=== PATIENT | male | born 1980 | race Caucasian/White ===

== ENCOUNTER 2020-10-18 18:07 | Emergency (ER) | payer OTHER, SELFPAY ==
[2020-10-18 18:13] VITALS: BP 108/76; PULSE 100; RESP 20; TEMP 35.9; O2SAT 98
--- NOTE | 2020-10-18 18:13 | ED.SKABFB ---
HPI - Skin/Abscess/Foreign Bdy General Chief complaint: Wound/Laceration Stated complaint: left hand finger lac Time Seen by Provider: 10/18/20 18:14 Source: patient and RN notes reviewed History of Present Illness HPI narrative: Patient is a 40-year-old male who presents the urgent care with complaints of a laceration to the left middle finger. Patient states that it occurred approximately 2 to 3 hours ago when he was drywalling his basement. Patient states that he placed a Band-Aid on it but denies of cleaning it out. States that he is up-to-date on his tetanus. No other acute complaints or injuries. No acute distress noted. Patient aware of the plan of care. Some parts of this dictation were generated by voice recognition software and may contain typographical and/or grammatical inaccuracies. Related Data Home Medications Medication Instructions Recorded Confirmed lisinopril 20 mg PO DAILY 10/18/20 10/18/20 topiramate 50 mg PO DAILY 10/18/20 10/18/20 Allergies Allergy/AdvReac Type Severity Reaction Status Date / Time Sulfa (Sulfonamide Allergy Unknown Rash Unverified 10/18/20 18:13 Antibiotics) Review of Systems Review of Systems: Narrative: CONSTITUTIONAL: Denies fever, chills, or sweats. EYES: Denies visual changes, redness, or discharge. ENT: Denies rhinorrhea, congestion, sore throat, or otalgia. CARDIOVASCULAR: Denies chest pain, palpitations, or edema. RESPIRATORY: Denies cough or dyspnea. GASTROINTESTINAL: Denies abdominal pain, nausea, vomiting, or diarrhea. GENITOURINARY: Denies dysuria or hematuria. SKIN: Reports of a laceration to the left middle finger MUSCULOSKELETAL: Denies back pain, joint pain, or myalgia. NEUROLOGIC: Denies headache, numbness, or weakness. All other systems reviewed are negative, except as documented in HPI. PMFSH Comments At the time of my signature, I reviewed and agree with the nursing past medical, surgical, social, and family history. There is no relevant family history pertinent to the patient complaint. Exam Narrative: Exam Narrative: GENERAL: This is a well-nourished, well-developed patient, in no apparent distress. HEAD: normocephalic, atraumatic. EYES: PERRL. Sclera clear/white. Vision is grossly intact. EARS: External ears normal NOSE: External nose normal with no obvious nasal discharge, nares without redness, no rhinorrhea. THROAT: Mucous membranes moist NECK: Neck supple SKIN: 2 cm circular avulsion laceration to the ulnar aspect of the left middle finger extending into the ulnar aspect of the cuticle and 1 cm linear laceration to the dorsal aspect NEURO: awake, alert, and oriented to person, place and time. There were no obvious focal neurologic abnormalities. EXTREMITIES: No clubbing, cyanosis, or edema. Capillary refill the left upper extremity is within normal limits. Positive strong left radial pulse. Course Vital Signs Vital signs: Vital Signs Temperature 96.7 F L 10/18/20 18:13 Pulse Rate 100 10/18/20 18:13 Respiratory Rate 20 10/18/20 18:13 Blood Pressure 108/76 10/18/20 18:13 Pulse Oximetry 98 10/18/20 18:13 Temperature 96.7 F L 10/18/20 18:13 Pulse Rate 100 10/18/20 18:13 Respiratory Rate 20 10/18/20 18:13 Blood Pressure 108/76 10/18/20 18:13 Pulse Oximetry 98 10/18/20 18:13 Reviewed Procedures Laceration Laceration 1: Site: hand (Middle finger) Side (If applicable): left Size (cm): 2 Description: flap Pre-repair: irrigated (Technique care normal saline) ====== Skin Level ====== Skin layer closed with: dermabond ====== Subcutaneous Layer ====== ====== Muscle Layer ====== ====== Tendon Layer ====== Dressin cm circular avulsion laceration to the ulnar aspect of the left middle finger extending into the ulnar aspect of the cuticle and into a superficial 1 cm linear laceration to the dorsal aspect-all approximated with the use of Contreras
== END 2020-10-18 18:52 | disposition home or self-care (01) ==
PROVIDERS: Emergency Provider Nurse Practitioner Family; PCP Physician Assistant
DX: S61.213A Laceration without foreign body of left middle finger without damage to nail, initial encounter (principal); X58.XXXA Exposure to other specified factors, initial encounter; I48.91 Unspecified atrial fibrillation; I10 Essential (primary) hypertension; J45.909 Unspecified asthma, uncomplicated; G40.909 Epilepsy, unspecified, not intractable, without status epilepticus
CPT/HCPCS: 12001; 99212; G0463

== ENCOUNTER 2020-10-19 19:02 | Emergency (ER) | payer OTHER, SELFPAY ==
[2020-10-19 19:05] VITALS: BP 101/75; PULSE 80; RESP 20; TEMP 36.8; O2SAT 100
--- NOTE | 2020-10-19 19:06 | ED.WOUNDLAC ---
HPI - Wound/Laceration General Chief Complaint: Wound/Laceration Stated Complaint: bleeding finger Time Seen by Provider: 10/19/20 19:07 History of Present Illness HPI narrative: Patient presents for for dressing change and reevaluation of wound. Patient states he is on Eliquis and has had some oozing around the wound and is here for reevaluation and fresh dressing. Patient removed dressing at home and states that it was saturated with blood. Upon arrival old dressing was removed moderate amount of blood to old dressing but no bleeding at present from the finger. Patient denies any new injury to finger no redness no drainage no concern for cellulitis Related Data Home Medications Medication Instructions Recorded Confirmed apixaban [Eliquis] 5 mg PO BID 10/18/20 10/18/20 lacosamide [Vimpat] 200 mg PO Q12H 10/18/20 10/18/20 lisinopril 20 mg PO DAILY 10/18/20 10/18/20 meclizine 12.5 mg PO TID PRN 10/18/20 10/18/20 topiramate 50 mg PO DAILY 10/18/20 10/18/20 Allergies Allergy/AdvReac Type Severity Reaction Status Date / Time Sulfa (Sulfonamide Allergy Unknown Rash Verified 10/18/20 18:32 Antibiotics) Review of Systems Review of Systems: Narrative: CONSTITUTIONAL: Denies fever, chills, or sweats. EYES: Denies visual changes, redness, or discharge. ENT: Denies rhinorrhea, congestion, sore throat, or otalgia. CARDIOVASCULAR: Denies chest pain, palpitations, or edema. RESPIRATORY: Denies cough or dyspnea. GASTROINTESTINAL: Denies abdominal pain, nausea, vomiting, or diarrhea. GENITOURINARY: Denies dysuria or hematuria. SKIN: Denies rash or itching. MUSCULOSKELETAL: Denies back pain, joint pain, or myalgia. NEUROLOGIC: Denies headache, numbness, or weakness. PSYCHIATRIC: Denies anxiety or depression. PMFSH Comments At time of signature, agree with nursing past medical, surgical, social and family history. There is no relevant family history pertinent to the presenting complaint Exam Narrative: Exam Narrative: GENERAL: Well-appearing, well-nourished, and in no acute distress. HEAD: Normocephalic, atraumatic. EYES: PERRLA and EOMI. ENT: Nares clear, no rhinorrhea or epistaxis. Mucous membranes moist. NECK: Supple. CHEST: Clear to auscultation. No respiratory distress. HEART: Regular rate and rhythm. No murmur heard. Normal peripheral pulses. ABDOMEN: Soft, nontender, nondistended, normal active bowel sounds. EXTREMITIES: Normal range of motion. No edema. SKIN: Warm, dry, no rash. NEURO: No focal deficits. Alert and oriented x3. [place] Coma Scale Eye Opening: Spontaneous 4 [place] Coma Scale Motor: Obeys Commands 6 [place] Coma Scale Verbal: Oriented 5 [place] Coma Scale Total 15 HAND EXAM - no swelling, no erythema, normal digit cascade with flexion of fingers, median nerve, ulnar nerve, radial nerve is intact. Normal sensation of each side of each finger, can perform `ok? sign, `cross over finger test of index and middle fingers? and `thumbs up? sign, normal thumb opposition, no scissoring. good capillary refill and radial pulse. normal flexion and extension of fingers and wrist. normal supination at wrist. Normal forearm and elbow exam. 2 cm circular avulsion laceration to the ulnar aspect of the left middle finger extending into the ulnar aspect of the cuticle and into a superficial 1 cm linear laceration to the dorsal aspect-all approximated Dermabond intact . old dressing removed and clean dry dressing with surgi cell applied no bleeding at present patient advised to follow-up with primary care provider in 1 to 2 days for reevaluation of wound MDM - Wound/Laceration Differential Diagnosis Differential diagnosis: Likely laceration, avulsion of skin and other Critical Care Time Critical Care Time Critical Care Time: No Discharge Plan Discharge Clinical Impression: Encounter for evaluation of wound Patient Disposition: Home, Self-Care Condition: Stable Instructions: Antibiotic Form, Puncture Wound
[2020-10-19] MEDS: CELLULOSE OXIDIZED 2 x 14 INCH 1 PKT XX (20:12)
== END 2020-10-19 19:25 | disposition home or self-care (01) ==
PROVIDERS: Emergency Provider Nurse Practitioner Family; PCP Physician Assistant
DX: Z48.00 Encounter for change or removal of nonsurgical wound dressing (principal); Z79.01 Long term (current) use of anticoagulants; G40.909 Epilepsy, unspecified, not intractable, without status epilepticus; I48.91 Unspecified atrial fibrillation; I10 Essential (primary) hypertension; J45.909 Unspecified asthma, uncomplicated
CPT/HCPCS: 99211; G0463

== ENCOUNTER 2022-08-29 09:58 | Emergency (ER) | payer OTHER, MEDICAID, SELFPAY ==
--- NOTE | ~2022-08-29 | XR_ITS ---
XR shoulder RT min 2V 08/29/2022 10:35 INDICATION: Right shoulder pain PROCEDURE: 4 views right shoulder COMPARISON: No prior studies for comparison. FINDINGS: Fracture, dislocation or subluxation is not identified. The soft tissues appear within norm al limits. No foreign bodies are identified. IMPRESSION: 1: NO ACUTE BONE OR JOINT ABNORMALITY IDENTIFIED. Reviewed, dictated and finalized at location B.
[2022-08-29 10:06] VITALS: BP 141/103; PULSE 83; RESP 14; TEMP 36.3; O2SAT 98
--- NOTE | 2022-08-29 10:19 | PC.NURSE ---
Pt reports prior break to right shoulder two years ago, declined need for ice pack at this time.
--- NOTE | 2022-08-29 10:24 | ED.UPPEXIN ---
HPI - Extremity Injury (Upper) General Chief Complaint: Extremity Injury, Upper Stated Complaint: Right Shoulder Injury Time Seen by Provider: 08/29/22 10:45 Source: patient and RN notes reviewed Mode of arrival: ambulatory Limitations: no limitations History of Present Illness HPI narrative: 42-year-old male presents with concern for right shoulder injury. Reports on Friday while working at [employer] he was pulling a heavy object when he felt pain and heard a pop. He reports his previous injury in that shoulder several years ago. He reports he has been working through the pain since then. He denies any [id number] at home intervention. He reports pain when lifting his arm, reports decreased strength Reports posterior shoulder pain that radiates up to the neck. He reports yesterday he had hand tingling MD complaint: injury to: right and shoulder Related Data Home Medications Medication Instructions Recorded Confirmed lacosamide 200 mg tablet (Vimpat) 200 mg PO Q12H 10/18/20 08/29/22 lisinopril 20 mg tablet 20 mg PO DAILY 10/18/20 08/29/22 meclizine 12.5 mg tablet 12.5 mg PO TID PRN Dizziness 10/18/20 08/29/22 topiramate 50 mg tablet 50 mg PO DAILY 10/18/20 08/29/22 Allergies Allergy/AdvReac Type Severity Reaction Status Date / Time Sulfa (Sulfonamide Allergy Unknown Rash Verified 08/29/22 10:16 Antibiotics) Review of Systems Review of Systems: CONSTITUTIONAL: Denies malaise, chills, sweats, or fever. SKIN: Denies rash or itching, open skin, laceration, abrasion, redness, warmth, swelling. MUSCULOSKELETAL: Reports right shoulder pain NEUROLOGIC: Denies numbness, weakness All systems reviewed & are unremarkable except as noted in HPI and below PMFSH Comments At time of signature, agree with nursing past medical, surgical, social and family history. There is no relevant family history pertinent to the presenting complaint Exam Narrative: GENERAL: Well-appearing, well-nourished, and in no acute distress. HEAD: Normocephalic, atraumatic. EYES: PERRLA, conjunctivae clear NECK: Supple. CHEST: Speaks in full sentences. No respiratory distress. HEART: Regular rate and rhythm. Normal and equal peripheral pulses. EXTREMITIES: Right shoulder has normal sensation, limited range of motion. No edema or ecchymosis. 3/5 strength with shoulder abduction, abduction. Normal sensation with sensitivity to light touch and pain. Posterior shoulder tenderness. No open wounds, no skin tenting, no devitalized tissue or atrophy, no trophic changes, no obvious deformity, alignment normal, nearby joints and structures intact. Distal pulses palpable and equal bilaterally, skin warm, dry, pink. Capillary refill less than 3 seconds. SKIN: Warm, dry, no rash. NEURO: Alert and oriented x3. PSYCH: Normal mood and affect Course Course Emergency Course: Patient is aware of diagnosis, understands and agrees to treatment plan. Anticipatory guidance given. Patient agrees to follow-up as directed and is aware of reasons to seek care at the emergency department. Portions of this record may have been created with voice recognition software Level of Care: Express Care Visit Vital Signs Vital signs: Vital Signs Temperature 97.4 F L 08/29/22 10:06 Pulse Rate 83 08/29/22 10:06 Respiratory Rate 14 08/29/22 10:06 Blood Pressure 141/103 H 08/29/22 10:06 Pulse Oximetry 98 08/29/22 10:06 Oxygen Delivery Room Air 08/29/22 10:06 Temperature 97.4 F L 08/29/22 10:06 Pulse Rate 83 08/29/22 10:06 Respiratory Rate 14 08/29/22 10:06 Blood Pressure 141/103 H 08/29/22 10:06 Pulse Oximetry 98 08/29/22 10:06 Oxygen Delivery Room Air 08/29/22 10:06 Reviewed. MDM - Extremity Injury (Upper) MDM Narrative Medical decision making narrative: Patients injury and pain is consistent with musculoskeletal etiology. No signs of neurological or vascular compromise on exam. Compartments and tissues are soft without signs of c
== END 2022-08-29 11:03 | disposition home or self-care (01) ==
PROVIDERS: Emergency Provider Nurse Practitioner; PCP Physician Assistant
DX: S49.91XA Unspecified injury of right shoulder and upper arm, initial encounter (principal); X50.0XXA Overexertion from strenuous movement or load, initial encounter; Y99.0 Civilian activity done for income or pay; I48.91 Unspecified atrial fibrillation; I10 Essential (primary) hypertension; J45.909 Unspecified asthma, uncomplicated; G40.909 Epilepsy, unspecified, not intractable, without status epilepticus
CPT/HCPCS: 73030; 99213; A4565; G0463

== ENCOUNTER 2023-07-19 14:01 | Emergency (ER) | payer OTHER, MEDICAID, SELFPAY ==
[2023-07-19 14:10] VITALS: BP 140/88; PULSE 91; RESP 16; TEMP 36.5; O2SAT 100
--- NOTE | 2023-07-19 14:15 | ED.GENADULT ---
HPI - General Adult General Stated complaint: Slurred Speech and Trouble Walking Source: patient, family and RN notes reviewed History of Present Illness HPI narrative: 43 yo M presents to urgent care with at side. states pt has been having intermittent slurred speech and difficulty walking for the last 4 days. Patient admits to being an alcoholic and states his last drink was this morning. Patient does have a history of seizures and states he has not been taking his medications recently because he states his last seizure was 3-4 years ago. Patient and do not believe patient has had a seizure patient does report all over body pain as if he has had 1. Reports intermittent HAs. Pt states he did fall this past week but couldn't say what day exactly. Denies any numbness, tingling, vomiting, abnormal chest pain or SOB. Denies any fevers or chills. is also reporting pt has been forgetful lately. Related Data Home Medications Medication Instructions Recorded Confirmed lacosamide 200 mg tablet (Vimpat) 200 mg PO Q12H 10/18/20 08/29/22 lisinopril 20 mg tablet 20 mg PO DAILY 10/18/20 08/29/22 meclizine 12.5 mg tablet 12.5 mg PO TID PRN Dizziness 10/18/20 08/29/22 topiramate 50 mg tablet 50 mg PO DAILY 10/18/20 08/29/22 Allergies Allergy/AdvReac Type Severity Reaction Status Date / Time Sulfa (Sulfonamide Allergy Unknown Rash Verified 08/29/22 10:16 Antibiotics) Review of Systems Review of Systems: CONSTITUTIONAL: Denies fever, chills, or sweats. EYES: Denies visual changes, redness, or discharge. ENT: Denies otalgia and sore throat CARDIOVASCULAR: Denies chest pain, palpitations, or edema. RESPIRATORY: Denies cough or dyspnea. GASTROINTESTINAL: Denies abdominal pain, nausea, vomiting, or diarrhea. GENITOURINARY: Denies dysuria or hematuria. SKIN: Denies rash or itching. MUSCULOSKELETAL: Denies back pain, joint pain, or myalgia. NEUROLOGIC: Intermittent headache, difficulty walking and speaking. Pertinent positives per HPI. PMFSH Comments At the time of my signature, I reviewed and agree with the nursing past medical, surgical, social, and family history. There is no relevant family history pertinent to the patient complaint. Exam Narrative: GENERAL: This is a well-nourished, well-developed patient, in no apparent distress. HEAD: normocephalic, atraumatic. EYES: Sclera clear/white. Vision is grossly intact. EARS: External ears normal, auditory canals clear and without drainage. Hearing grossly intact. NOSE: External nose normal with no obvious nasal discharge, nares without redness, no rhinorrhea. THROAT: Mucous membranes moist, posterior pharynx clear. NECK: Neck supple, non-tender without lymphadenopathy, masses or thyromegaly. CARDIOVASCULAR: Regular rate and rhythm without murmurs, gallops, or rubs. RESPIRATORY: Clear to auscultation. Breath sounds equal bilaterally. No wheezes, rales, or rhonchi. SKIN: warm, intact with no suspicious lesions or rash, good texture and turgor. NEURO: awake, alert, and oriented to person, place and time. There were no obvious focal neurologic abnormalities. Course Course Level of Care: Express Care Visit Vital Signs Vital signs: Vital Signs Temperature 97.7 F 07/19/23 14:10 Pulse Rate 91 07/19/23 14:10 Respiratory Rate 16 07/19/23 14:10 Blood Pressure 140/88 07/19/23 14:10 Pulse Oximetry 100 07/19/23 14:10 Oxygen Delivery Room Air 07/19/23 14:10 Temperature 97.7 F 07/19/23 14:10 Pulse Rate 91 07/19/23 14:10 Respiratory Rate 16 07/19/23 14:10 Blood Pressure 140/88 07/19/23 14:10 Pulse Oximetry 100 07/19/23 14:10 Oxygen Delivery Room Air 07/19/23 14:10 Reviewed Medical Decision Making MDM Narrative Medical decision making narrative: Discussed with pt and family the reasons it is recommended pt should be evaluated in the emergency dept. Pt agrees to go and states he will go by private vehicl
== END 2023-07-19 14:35 | disposition short-term general hospital (02) ==
PROVIDERS: Emergency Provider Nurse Practitioner Family
DX: R51.9 Headache, unspecified (principal); G40.909 Epilepsy, unspecified, not intractable, without status epilepticus; Z91.148 Patient's other noncompliance with medication regimen for other reason; F10.20 Alcohol dependence, uncomplicated
CPT/HCPCS: 99213; G0463

== ENCOUNTER 2024-08-12 08:02 | Emergency (ER) | payer OTHER, SELFPAY ==
--- NOTE | ~2024-08-12 | XR_ITS ---
EXAMINATION: XR tibia fibula RT 2V DATE: 08/12/2024 08:41 INDICATION: Right lower leg injury. TECHNIQUE: 2 views of right tibia and fibula on 4 radiographs were obtained. COMPARISON: None. FINDINGS: Alignment is normal. No fracture. Joint spaces are normal. No knee joint effusion. IMPRESSION: 1. Normal right tibia and fibula. Reviewed, dictated and finalized at location A.
[2024-08-12 08:08] VITALS: BP 128/89; PULSE 102; RESP 20; TEMP 36.4; O2SAT 98
--- NOTE | 2024-08-12 08:10 | ED.LOWEXIN ---
HPI - Extremity Injury (Lower) General Chief Complaint: Extremity Injury, Lower Stated Complaint: Right Leg lag Time Seen by Provider: 08/12/24 08:13 Source: patient Mode of arrival: ambulatory Limitations: no limitations History of Present Illness HPI Narrative: 44 y/o male presented for c/o right leg injury today at work. 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 Patient was wearing verena jeans which remain intact, and reports abrasion and swelling to the lower leg. No treatment prior to arrival. No active bleeding. Patient is ambulating without difficulty. Related Data Home Medications Medication Instructions Recorded Confirmed lacosamide 200 mg tablet (Vimpat) 200 mg PO Q12H 10/18/20 08/12/24 lisinopril 20 mg tablet 20 mg PO DAILY 10/18/20 08/12/24 meclizine 12.5 mg tablet 12.5 mg PO TID PRN Dizziness 10/18/20 08/12/24 topiramate 50 mg tablet 50 mg PO DAILY 10/18/20 08/12/24 Allergies Allergy/AdvReac Type Severity Reaction Status Date / Time Sulfa (Sulfonamide Allergy Unknown Rash Verified 07/19/23 14:51 Antibiotics) Review of Systems Review of Systems: CONSTITUTIONAL: Denies body aches, fever, chills CARDIOVASCULAR: Denies chest pain, palpitations, or edema. RESPIRATORY: Denies cough or dyspnea. SKIN: Denies rash, itching, or wounds. MUSCULOSKELETAL: Reports abrasion and swelling RLE NEUROLOGIC: Denies headache, numbness, tingling, or weakness. All systems reviewed & are unremarkable except as noted in HPI and below PMFSH Comments At time of signature, I have reviewed and agree with nursing past medical, surgical, social and family history unless otherwise noted. Please see nursing chart for further information. There is no relevant family history pertinent to the presenting complaint Exam Narrative: GENERAL: Well-appearing CHEST: Speaks in full sentences. No respiratory distress. HEART: Regular rate and rhythm. Normal and equal peripheral pulses. EXTREMITIES: RLE has normal strength and sensation, normal range of motion. Localized soft tissue swelling surrounding the abrasion, mild ecchymosis, tenderness with light palpation. No obvious deformity; alignment normal, pulse palpable and equal bilaterally, skin warm, dry, pink. Capillary refill less than 3 seconds. SKIN: Warm, dry, Right anterior lower leg with [id number] abrasion, linear abrasion 6cmx0.5cm, no gaping or active drainage. NEURO: Alert and oriented x3. PSYCH: Irritable Course Course Emergency Course: Patient is aware of diagnosis, understands and agrees to treatment plan. Anticipatory guidance given. Patient agrees to follow-up as directed and is aware of reasons to seek care at the emergency department. Portions of this record may have been created with voice recognition software Level of Care: Express Care Visit Vital Signs Vital signs: Vital Signs Temperature 97.6 F 08/12/24 08:08 Pulse Rate 102 H 08/12/24 08:08 Respiratory Rate 20 08/12/24 08:08 Blood Pressure 128/89 08/12/24 08:08 Pulse Oximetry 98 08/12/24 08:08 Oxygen Delivery Room Air 08/12/24 08:08 Temperature 97.6 F 08/12/24 08:08 Pulse Rate 102 H 08/12/24 08:08 Respiratory Rate 20 08/12/24 08:08 Blood Pressure 128/89 08/12/24 08:08 Pulse Oximetry 98 08/12/24 08:08 Oxygen Delivery Room Air 08/12/24 08:08 Reviewed MDM - Extremity Injury (Lower) MDM Narrative Medical decision making narrative: Discussed physical exam findings and xray. Advised supportive measures and signs/symptoms to go to the ER. Pt is appropriate for outpt treatment and f/u. Differential Diagnosis Differential diagnosis: Likely other (abrasion, contusion, ) Imaging Data Radiologist's impression: Patient: Reza Griffin : 1980 MR#: [id number] Age: 44 Acct:[id number] Loc: [facility] ADM Date: 08/12/24Attending Dr:
== END 2024-08-12 09:20 | disposition home or self-care (01) ==
PROVIDERS: Emergency Provider Nurse Practitioner Family; PCP Physician Assistant
DX: S80.811A Abrasion, right lower leg, initial encounter (principal); W22.8XXA Striking against or struck by other objects, initial encounter; Y99.0 Civilian activity done for income or pay; G40.909 Epilepsy, unspecified, not intractable, without status epilepticus; I48.91 Unspecified atrial fibrillation; I10 Essential (primary) hypertension; J45.909 Unspecified asthma, uncomplicated
CPT/HCPCS: 73590; 99212; G0463

== ENCOUNTER 2024-09-29 11:28 | Emergency (ER) | payer OTHER, SELFPAY ==
[2024-09-29 11:33] VITALS: BP 119/68; PULSE 88; RESP 16; TEMP 36.2; O2SAT 96
--- NOTE | 2024-09-29 12:14 | ED.WOUNDLAC ---
HPI - Wound/Laceration General Chief Complaint: Wound/Laceration Stated Complaint: Right middle finger cut Time Seen by Provider: 09/29/24 12:00 Source: patient, RN notes reviewed and old records reviewed Mode of arrival: ambulatory Limitations: no limitations History of Present Illness HPI narrative: 44 year old male presents to [facility] with complaints of laceration to his right anterior proximal middle finger which occurred within the past 1hour prior to arrival. Patient reports that he was using a billet grinder and it slipped and hit his right middle finger causing laceration. Patient reports that he cleansed area with soap and water and put bandage on and it continued to bleed so came to clinic to get evaluated. No acute bleeding noted from site at this time, Patient reports that his tetanus is up to date. Onset (ago): hour(s) (1) Location: other (right anterior proximal middle finger) Place: work Patient tetanus UTD: Yes Treatments prior to arrival: bandage Related Data Home Medications Medication Instructions Recorded Confirmed lacosamide 200 mg tablet (Vimpat) 200 mg PO Q12H 10/18/20 08/12/24 lisinopril 20 mg tablet 20 mg PO DAILY 10/18/20 08/12/24 topiramate 50 mg tablet 50 mg PO DAILY 10/18/20 08/12/24 Allergies Allergy/AdvReac Type Severity Reaction Status Date / Time Sulfa (Sulfonamide Allergy Unknown Rash Verified 09/29/24 11:43 Antibiotics) Review of Systems Review of Systems: CONSTITUTIONAL: Denies fever, chills, or sweats. CARDIOVASCULAR: Denies chest pain, palpitations, or edema. RESPIRATORY: Denies cough or dyspnea. SKIN: Reports laceration to right proximal middle anterior finger on billet grinder MUSCULOSKELETAL: Denies musculoskeletal pain NEUROLOGIC: Denies numbness, or weakness. All systems reviewed & are unremarkable except as noted in HPI and below PMFSH Past Medical History Medical History (Updated 10/02/24 @ 12:20 by Christina Del Angel NP) Asthma Dizziness Hypertension Paroxysmal A-fib Seizures Surgical History Surgical History (Updated 10/02/24 @ 12:14 by Christina Del Angel NP) S/P left knee arthroscopy torn meniscectomy Social History Social History (Updated 10/02/24 @ 12:11 by Christina L. Mer, JUDICIAL REGISTRAR) Smoking status: Current every day smoker Alcohol use details: Alcohol abuse in past unknown if still consuming alcohol Substance use: unknown Living arrangements: with family Gender identity (if verbalized by the patient): Male Comments At time of signature, agree with nursing past medical, surgical, social and family history. There is no relevant family history pertinent to the presenting complaint Exam Narrative: GENERAL: Well-appearing, well-nourished, and in no acute distress. HEAD: Normocephalic, atraumatic. NECK: Supple. no lymphadenopathy CHEST: Clear to auscultation. No respiratory distress.SAO2 96% on room air HEART: Regular rate and rhythm. No murmur heard. Normal peripheral pulses. EXTREMITIES: Normal range of motion. No edema. SKIN: Warm, dry, no rash. Reports laceration to right proximal anterior middle finger from billet grinder injury, no active bleeding at this time has full mobility of his right middle finger, strong right radial pulse NEURO: No focal deficits. Alert and oriented x3. Course Course Level of Care: Express Care Visit Vital Signs Vital signs: Vital Signs Temperature 36.2 C L 09/29/24 11:33 Pulse Rate 88 09/29/24 11:33 Respiratory Rate 16 09/29/24 11:33 Blood Pressure 119/68 09/29/24 11:33 Pulse Oximetry 96 09/29/24 11:33 Oxygen Delivery Room Air 09/29/24 11:33 Temperature 36.2 C L 09/29/24 11:33 Pulse Rate 88 09/29/24 11:33 Respiratory Rate 16 09/29/24 11:33 Blood Pressure 119/68 09/29/24 11:33 Pulse Oximetry 96 09/29/24 11:33 Oxygen Delivery Room Air 09/29/24 11:33 Procedures Laceration anterior proximal middle finger: Date: 09/29/24 Time: 12:12 Site: hand (middle finger) Side (If applicable): right Size (cm): 0.75 Description: linear Depth: simple, single layer Local Anesthetic: lidocaine 1% Amount of anesthesia used (mL): 3 Pre-repair: wound explored, irrigated extensively and other (cleansed with wound care solution) ====== Skin Level ====== Skin layer closed with: nylon Size (cm): 4-0 Number of sutures: 3 Technique: simple, interrupted ====== Subcutaneous Layer ====== ====== Muscle Layer ====== ====== Tendon Layer ====== Dressing: tolerated well, dressing of Band-aide applied with wound care instructions reviewed with patient with understanding voiced. MDM - Wound/Laceration MDM Narrative Medical decision making narrative: Wound explored for foreign body and copious irrigation provided with no evidence of FB. Discussed the potential of retained foreign body with the patient and signs/symptoms that should prompt the patient to immediately go to the ED for reevaluation. The wound was explored and no foreign bodies were found. There was no evidence of tendon or nerve lacerations. The wound was closed per procedure note. A sterile dressing was then applied and anticipatory guidance was provided. Tetanus prophylaxis [(was/was not)] given Differential Diagnosis Differential diagnosis: Likely laceration, abrasion, avulsion of skin and other (laceration of right middle finger) Medical Records Attestation: I reviewed the patient's medical records. Critical Care Time Critical Care Time Critical Care Time: No Discharge Plan Discharge Clinical Impression: Laceration of right middle finger Qualifiers: Encounter type: initial encounter Damage to nail status: without damage Foreign body presence: without foreign body Qualified Code(s): S61.212A - Laceration without foreign body of right middle finger without damage to nail, initial encounter Patient Disposition: Home, Self-Care Condition: Stable Instructions: Antibiotic Form Additional Instructions: Keep the area clean and dry No continuous water contact like dishes or swimming You may bathe and wash you hair caution with hair products or lotions Tylenol or ibuprofen for any fever pain dressing of choice watch for infection--redness, swelling, drainage follow up with PCP for suture/staple in removal 10 days recheck with PCP if further concerns or problems Cephalexin take as prescribed to complete If your symptoms persist, change or worsen significantly before you can contact your personal physician then please, without delay, go to the emergency department for further evaluation. Follow-up with PCP in 7-10 days or sooner if needed Prescriptions: New cephalexin 500 mg capsule 500 mg PO Q8H Qty: 21 0RF No Action lisinopril 20 mg Tablet 20 mg PO DAILY topiramate 50 mg Tablet 50 mg PO DAILY lacosamide [Vimpat] 200 mg Tablet 200 mg PO Q12H Follow-up/Referrals: Gwendolyn,WILD Jacques [Primary Care Provider] - Time of Disposition: 12:30 [place] Coma Scale Eyes: Open Verbal: Oriented and Alert Motor: Follows Commands Kylee Coma Total Score: 15
== END 2024-09-29 12:50 | disposition home or self-care (01) ==
PROVIDERS: Emergency Provider Registered Nurse; PCP Physician Assistant
DX: S61.212A Laceration without foreign body of right middle finger without damage to nail, initial encounter (principal); W29.8XXA Contact with other powered hand tools and household machinery, initial encounter; I10 Essential (primary) hypertension; I48.0 Paroxysmal atrial fibrillation; G40.909 Epilepsy, unspecified, not intractable, without status epilepticus; J45.909 Unspecified asthma, uncomplicated
CPT/HCPCS: 12001; 99213; G0463; J2003

== ENCOUNTER 2025-04-21 14:30 | Emergency (ER) | payer OTHER, SELFPAY ==
--- NOTE | ~2025-04-21 | XR_ITS ---
EXAMINATION: XR elbow RT min 3V, XR wrist RT min 3V DATE: 04/21/2025 15:21 INDICATION: Right wrist and forearm pain post fall TECHNIQUE: 1. Anteroposterior, two oblique and lateral views of the right elbow were obtained. 2. Dorsal palmar, lateral, ulnar deviation and oblique views of the right wrist were obtained. COMPARISON: None. FINDINGS: Alignment is normal at the right elbow, wrist and visualized hand. Old healed fracture deformity at t he right second and third metacarpal diaphysis. No acute fractures identified. Normal joint space at the right elbow, wrist and visualized hand. No elbow joint effusion. Soft tissues are unremarkable. IMPRESSION: 1. Old healed fractures of the right second and third metacarpal diaphyses. Otherwise normal radiogra phs of the right wrist and elbow. Reviewed, dictated and finalized at location A. IMPRESSION: 1. Old healed fractures of the right second and third metacarpal diaphyses. Oth erwise normal radiographs of the right wrist and elbow.
--- OUTSIDE RECORDS SUMMARY | 2025-04-21 14:33 | XMS_ITS | Referral Summary ---
Author Organization [facility] Building B Address [address] [place] [address] Care Team Providers Care Absence Management Consultant Name Role Phone Michael Hoffman MD Primary Care Provider [phone] Encounters Date Type Department Care Team Description 04/12/2025 Results Follow-Up [facility] [address] [phone] April Rodriguez NP Lipid panel, Comprehensive metabolic panel, CBC with auto differential, Additional followed-up results: 2 04/12/2025 7:50 AM CDT Lab [facility] [address] [place] [address] Lipid disorder; Seizure disorder (HCC); Alcoholism (HCC) 04/12/2025 7:00 AM CDT Office Visit [facility] [address] [phone] April Rodriguez NP Seizure disorder (HCC) (Primary Dx); Nonintractable epilepsy without status epilepticus, unspecified epilepsy type (HCC); Alcoholism (HCC); Alcoholic cirrhosis of liver without ascites (HCC); Attempted suicide (HCC); PAF (paroxysmal atrial fibrillation) (HCC); Hypertension, essential; Chronic migraine with aura without status migrainosus, not intractable; NICM (nonischemic cardiomyopathy) (HCC); Lipid disorder; BMI 23.0-23.9, adult 03/29/2025 Results Follow-Up [facility] Primary Care at [address] [phone] Chest WO Contrast 03/19/2025 7:22 AM CDT - 03/19/2025 11:59 PM CDT Hospital Encounter [facility] [address] [place] [address] Pulmonary nodules Discharge Disposition: Discharge to home or self care 03/18/2025 Telephone [facility] [address] [place] [phone] DannyFernando 03/16/2025 Results Follow-Up [facility] at [address] [place] [phone] Nicole Dill NP Stress Treadmill Test 03/16/2025 10:55 AM CDT - 03/16/2025 11:59 PM CDT Hospital Encounter [facility] [address] [place] [phone] Other chest pain Discharge Disposition: Discharge to home or self care 03/02/2025 8:30 AM CDT Office Visit [facility] at [address] [place] [phone] Nicole Dill NP NICM (nonischemic cardiomyopathy) (HCC) (Primary Dx); PAF (paroxysmal atrial fibrillation) (HCC); Essential hypertension; Other chest pain 02/06/2025 8:15 AM CDT Office Visit [facility] [place] [address] [place] [phone] Monique Mera NP Exacerbation of asthma, unspecified asthma severity, unspecified whether persistent (Primary Dx) from Last 3 Months Allergies Active Allergy Reactions Criticality Noted Date Comments Sulfa (Sulfonamide Antibiotics) Unknown Reaction: Unknown, Sulfanilamide Other (See comments) Reaction: Unknown, , Medications lisinopriL (PRINIVIL,ZESTR IL) 20 mg tablet Take 1 tablet (20 mg total) by mouth daily 90 tablet 3 4 Active lacosamide (Vimpat) 200 mg tablet Take 1 tablet (200 mg total) by mouth 2 (two) times a day 60 tablet 3 4 Active topiramate (Qudexy XR) 50 mg capsule,sprinkl e,ER 24hr Take 50 mg by mouth daily 30 capsule 5 4 Active albuterol HFA (PROVENTIL HFA,VENTOLIN HFA,PROAIR HFA) 90 mcg/actuation inhalerIndicati ons:Exacerbatio n of asthma, unspecified asthma severity, unspecified whether persistent Inhale 2 puffs every 4 (four) hours as needed for wheezing or shortness of breath 18 g 5 Active fluticasone propionate (FLONASE) 50 mcg/actuation nasal sprayIndication s:Viral URI with cough Administer 2 sprays into each nostril daily 1 each 4 04/12/20 25 Discontin ued(Patie nt Reported) cyclobenzaprine (FLEXERIL) 5 mg tabletIndicatio ns:Acute pain of left shoulder,Left elbow pain,Pain in left arm Take 1 tablet (5 mg total) by mouth 3 (three) times a day as needed for muscle spasms for up to 7 days 21 tablet 5 04/12/20 25 Discontin ued(Patie nt Reported) Active Problems Problem Noted Date Diagnosed Date Attempted suicide 11/19/2024 Assessment & Plan (04/12/2025 7:33 AM CDT): Denies current or recent thoughts of SI. Will continue to monitor. Patient denies any plans for self-harm or suicide when asked directly. Aware to seek help immediately or call 911 with any suicidal ideation. Assessment & Plan (11/19/2024 4:02 PM GIRLS TENNIS COACH): Patient attempted to hang himself. Reviewed psychiatry consult. Psychiatry determine patient was appropriate for discharge.. Today he reports no thoughts of suicide or significant depression. States that he does not recollect his attempted suicide due to alcohol intoxication. He and his explained that he has a history of multiple suicide attempts all well under the influence of alcohol. Reviewed safety contract with patient. Given resources today as well as met with often licensed master social worker. Patient denies any plans for self-harm or suicide when asked directly. Aware to seek help immediately or call 911 with any suicidal ideation. Alcohol withdrawal syndrome with complication Pulmonary nodules 10/11/2024 Assessment & Plan (10/11/2024 9:50 AM GIRLS TENNIS COACH): Continues on f/u CT scan in 3 months. Monitor response. Hypertension, essential 10/11/2024 Assessment & Plan (04/12/2025 7:29 AM CDT): Blood pressure stable and controlled. Will continue on Lisinopril. Will continue to monitor. Assessment & Plan (11/19/2024 8:18 AM GIRLS TENNIS COACH): BP well controlled, continue lisinopril 10 mg daily. Assessment & Plan (10/11/2024 9:50 AM GIRLS TENNIS COACH): As above. Dupuytren's contracture of both hands 10/11/2024 Assessment & Plan (10/11/2024 9:50 AM GIRLS TENNIS COACH): Referral to hand surgeon and will montior ersponse. NO chagne and will follow response. Alcoholic cirrhosis of liver without ascites 10/2024 Assessment & Plan (04/12/2025 7:33 AM CDT): Reviweed import of complete EtOH abstinence and will montior respnose. Reivewed risk fo HCC, orthopedics injuries secondasry to fall and contribution related to seizure and cardiac etiology Assessment & Plan (10/11/2024 9:51 AM GIRLS TENNIS COACH): Reviweed import of complete EtOH abstinence and will montior respnose. Reivewed risk fo HCC, orthopedics injuries secondasry to fall and contribution related to seizure and cardiac etiology. ETOH abuse 10/11/2024 Assessment & Plan (11/19/2024 4:13 PM GIRLS TENNIS COACH): Patient reports 2 weeks of sobriety, no etoh use since hospital discharge. Patient is agreeable to meet with licensed master social worker today to discuss outpatient treatment options. Discussed importance of establishing coping mechanisms to prevent relapse. Continues topiramate Assessment & Plan (10/11/2024 9:51 AM GIRLS TENNIS COACH): Precontemplative about cessation and will follow response. Mild intermittent asthma 10/11/2024 Assessment & Plan (10/11/2024 9:51 AM GIRLS TENNIS COACH): Prn albuterol. Tobacco dependence 10/11/2024 Assessment & Plan (11/19/2024 8:19 AM GIRLS TENNIS COACH): Precontemplative. Encourage cessation. Assessment & Plan (10/11/2024 9:51 AM GIRLS TENNIS COACH): Precontemplative. Encourage cmoplete cessation. Encounter for medical examination to establish c are 10/11/2024 Assessment & Plan (10/11/2024 9:52 AM GIRLS TENNIS COACH): Focus of exam is to establish care. Reivewed past medical history and will continue to [id number] response. NICM (nonischemic cardiomyopathy) 08/23/2022 Assessment & Plan (04/12/2025 7:29 AM CDT): Managed by cardiology, scheduled follow up 03/2025. Discussed relationship between alcoholism and heart disease. Stressed the need for continued sobriety. Assessment & Plan (11/19/2024 3:58 PM GIRLS TENNIS COACH): Managed by cardiology, scheduled follow up 03/2025. Discussed relationship between alcoholism and heart disease. Stressed the need for continued sobriety. Essential hypertension 08/23/2022 Assessment & Plan (10/11/2024 9:49 AM GIRLS TENNIS COACH): Setable on lisinopril and will montior response. NO chest pains/pressures/palptiations. Hemorrhage of anus and rectum 11/05/2021 Assessment & Plan (11/05/2021 1:34 PM GIRLS TENNIS COACH): colonoscopy PAF (paroxysmal atrial fibrillation) 11/07/2020 Assessment & Plan (04/12/2025 7:29 AM CDT): NSR in office. No shortness a breath, palpitations or dizziness. Assessment & Plan (11/19/2024 3:57 PM GIRLS TENNIS COACH): NSR in office. No shortness a breath, palpitations or dizziness. Hypersomnia 11/07/2020 Chest pain 06/07/2020 Overview (06/07/2020): Added automatically from request for surgery [id number] Therapeutic drug monitoring 09/26/2017 Variants of migraine 11/07/2016 Migraine headache 11/07/2016 Assessment & Plan (04/12/2025 7:29 AM CDT): Stable and controlled with Topiramate. Will continue to monitor. Dizziness 08/23/2016 Overview (03/08/2017): Dizziness Epilepsy 10/15/2013 Overview (03/07/2017): Epilepsy Assessment & Plan (04/12/2025 7:29 AM CDT): Continues on dual agent therapy. Continues on vimpat and topiramate and will follow response. WIll monitor response. Reivewed EtOH as contributing agent. Assessment & Plan (10/11/2024 9:49 AM GIRLS TENNIS COACH): Continues on dual agent therapy. Continues on vimpat and topiramate and will follow response. WIll monitor response. Reivewed EtOH as contributing agent. Subtherapeutic phenytoin level 10/15/2013 Overview (03/07/2017): Subtherapeutic serum dilantin level Seizure disorder 05/20/2013 Overview (03/07/2017): New onset seizure Assessment & Plan (04/12/2025 7:29 AM CDT): No recent seizure activity, last seizure 2018. Patient has continued lacosamide. Will continue on Lacosamide and Topiramate. Will continue to monitor. Orders: CBC with auto differential; Future Comprehensive metabolic panel; Future Assessment & Plan (11/19/2024 4:28 PM GIRLS TENNIS COACH): No recent seizure activity, last seizure 2018. Patient has continued lacosamide. Discussed side effects of lacosamide per up to date, potential increase in suicidal ideation. Recommend patient follow up with neurology, unclear if he needs to continue. Referral placed. Alcoholism 05/20/2013 Overview (03/07/2017): Alcoholism Assessment & Plan (04/12/2025 7:29 AM CDT): Still drinking but not as much in the past. Still causing issues with family. No tremors noted. Orders: Comprehensive metabolic panel; Future Immunizations Immunization Administration Dates Next Due DTP 07/13/1985,04/30/1984,01/19/1981 ,1979 Influenza, Unspecified 11/19/2024(Deferr ed: Patient Refused),10/11/2024(Deferred: Patient Refused),10/11/2024(Deferred: Patient Refused),08/31/2024(Deferred: Patient Refused),08/31/2023(Deferred: Patient Refused),08/31/2023(Deferred: Patient Refused),08/01/2023(Deferred: Patient Refused),08/01/2023(Deferred: Patient Refused),08/31/2022(Deferred: Patient Refused),08/31/2022(Deferred: Patient Refused) MMR 11/03/1990,05/18/1981 OPV 07/13/1985,04/30/1984,01/19/1981 ,1979 Td, adsorbed 09/16/1995 Tdap 11/09/2020 Social History Tobacco Use Types Packs/Day Years Used Date Smoking Tobacco: Every Day Cigarettes 0.4 38.8 Smokeless Tobacco: Former Chew Tobacco Cessation:Ready to Q uit: Not Asked; Counseling Given: Not Answered Alcohol Use Standard Drinks/Week Comments Yes 0 (1 standard drink = 0.6 oz pur e alcohol) socially [facility] Utilities Answer Date Recorded In the past 12 months has th e electric, gas, oil, or water Local [employer] threatened to shut off services in your home? No 11/08/2024 Social Connection and Isolat ion Panel [NHANES] Answer Date Recorded In a typical week, how many times do you talk on the phone with family, friends, or neighbors? More than three times a week 11/08/2024 How often do you get togethe r with friends or relatives? More than three times a week 11/08/2024 How often do you attend chur ch or church services? Patient declined 11/08/2024 Do you belong to any clubs o r organizations such as mosque groups, unions, fraternal or athletic groups, or school groups? Patient declined 11/08/2024 How often do you attend meet ings of the clubs or organizations you belong to? Patient declined 11/08/2024 Are you , , di vorced, , never , or living with a partner? 11/08/2024 AUDIT-C Answer Date Recorded Q1: How often do you have a drink containing alcohol? 4 or more times a week 01/30/2022 Q2: How many drinks containi ng alcohol do you have on a typical day when you are drinking? 3 or 4 Q3: How often do you have si x or more drinks on one occasion? Weekly 01/30/2022 Overall Financial Resource Strain (CARDIA) Answe r Date Recorded How hard is it for you to pa y for the very basics like food, housing, medical care, and heating? Somewhat hard 11/08/2024 PHQ-2 Answer Date Recorded PHQ-2 Total Score (If total score is 3 or more points, staff should administer the PHQ-9) 1 04/12/2025 Hunger Vital Sign Answer Date Recorded Within the past 12 months, y ou worried that your food would run out before you got the money to buy more. Never true 11/08/20 24 Within the past 12 months, t he food you bought just didn't last and you didn't have money to get more. Never true 11/08/2024 PRAPARE - Transportation Answer Date Re corded In the past 12 months, has l ack of transportation kept you from medical appointments or from getting medications? No 08/2024 In the past 12 months, has l ack of transportation kept you from meetings, work, or from getting things needed for daily living? No 11/08/2024 Housing Stability Vital Sign Answer Geremias e Recorded In the last 12 months, was t here a time when you were not able to pay the mortgage or rent on time? No 11/08/2024 In the past 12 months, how m any times have you moved where you were living? 0 11/08/2024 At any time in the past 12 m [facility], were you homeless or living in a senior living (including now)? No 11/08/2024 Personal Safety Answer Date Recorded Have you ever been in or are you currently in a harmful physical or emotional relationship or is someone making you feel afraid or unsafe? Patient unable to answer 11/05/2024 Sex and Gender Information Value Date Recorded Sex Assigned at Not on file Legal Sex Male 4:07 AM GIRLS [employer]ENNIS [employer] Gender Identity Male 12/16/2021 4:19 PM GIRLS [employer]ENN[employer] COACH Sexual Orientation Straight 12/16/2021 4: 19 PM GIRLS [employer]ENN[employer] COACH Last Filed Vital Signs Vital Sign Reading Time Taken Comments Blood Pressure 130/90 04/12/2025 7:01 AM CDT Pulse 82 04/12/2025 7:01 AM CDT Temperature 36.9 C (98.5 F) 04/12/2025 7:01 AM CDT Respiratory Rate 18 04/12/2025 7:01 AM CDT Oxygen Saturation 97% 04/12/2025 7:01 AM CDT Inhaled Oxygen Concentration - - Weight 79.8 kg (176 lb) 04/12/2025 7:01 AM CDT Height 185.4 cm (6' 0.99 ) 04/12/2025 7:01 AM CD T Body Mass Index 23.23 04/12/2025 7:01 AM CDT Plan of Treatment Not on file Medical Devices Implanted Type Area Rug Designer Device Identifier Shelf Expiration Date Model / Serial / Lot [employer] [id number] Angio-Seal Evolution 6fr .035in Guidewire Bypass Tube Suture - [id number] Implanted:Qty: 1 on 06/15/2020 by Alonso Almanza MD at [facility] [employer] 12/31/2020 [id number] / / [id number] Procedures Procedure Name Priority Date/Time Associated Diagnosis Comments EGFR Routine 04/12/2025 7:52 AM CDT Seizure disorder (HCC) Alcoholism (HCC) DIFFERENTIAL AUTO Routine 04/12/2025 7:5 2 AM CDT Seizure disorder (HCC) CBC WITH AUTO DIFFERENTIAL Routine 04/12/2025 7:52 AM CDT Seizure disorder (HCC) COMPREHENSIVE METABOLIC PANEL Routine 04/12/2025 7:52 AM CDT Seizure disorder (HCC) Alcoholism (HCC) LIPID PANEL Routine 04/12/2025 7:52 AM CDT Lipid disorder CT CHEST WO CONTRAST Schedule Routine, Read Routine (OP Routine) 03/19/2025 7:32 AM CDT Pulmonary nodules STRESS TEST ONLY TREADMILL Routine 03/16/2025 11:31 AM CDT Other chest pain COLONOSCOPY 01/31/2022 9:00 AM GIRLS [employer]ENN[employer] COACH from Last 3 Months or Most Recently Relevant to Health Maintenance Results * eGFR (04/12/2025 7:52 AM CDT) eGFR >90 >=60 mL/min/1. 73 m2 Comment: Interpretive Data Reference Interval Normal >/= 90 mL/min/1.73m2 Mildly decreased* 60 - 89 mL/min/1.73m2 Mildly to moderately decreased 45 - 59 mL/min/1.73m2 Moderately to severely decreased 30 - 44 mL/min/1.73m2 Severely decreased 15 - 29 mL/min/1.73m2 Kidney Failure < 15 mL/min/1.73m2 *Relative to young adult level Estimated glomerular filtration rate is determined by the 2020 CKD-EPI equation recommended by the National Kidney Foundation (A Unifying Approach to GFR Estimation: Recommendations of the NKF-ASK Task Force on Reassessing the Inclusion of Race in Diagnosing Kidney Disease, JASN 2020). The CKD-EPI equation should not be used for patients with unstable renal function and has not been validated in children and those over 70. Current interpretive data was last reviewed 2021. Blood 04/12/2025 7:52 AM CDT 04/12/2025 8:40 AM CDT us April Rodriguez NP LAB BLOOD ORDERABLES Final Re sult [facility] ([place]) [address] [facility] Department [place] [address] * (ABNORMAL) Differential, auto (04/12/2025 7:52 AM CDT) Neutrophil abs 2.68 1.50 - 6.50 K/cumm Imm gran abs 0.01 0.00 - 0.10 K/cumm [facility] ([place]) Lymphocyte abs 1.85 0.80 - 3.30 K/cumm [facility] ([place]) Monocyte abs 0.82(H) 0.20 - 0.80 K/cumm [facility] ([place]) Eosinophil abs 0.06 0.00 - 0.50 K/cumm [facility] ([place]) Basophil abs 0.04 0.00 - 0.10 K/cumm [facility] ([place]) Neutrophil pct 49.1 % [facility] ([place]) Comment: Interpretive Data Percent cell count reference ranges are not reported, since discordance with absolute values may lead to misinterpretation of CBC data. Current Interpretive Data was last revised on 2018. Imm gran pct 0.2 % [facility] ([place]) Comment: Interpretive Data Percent cell count reference ranges are not reported, since discordance with absolute values may lead to misinterpretation of CBC data. Current Interpretive Data was last revised on 2018. Lymphocyte pct 33.9 % [facility] ([place]) Comment: Interpretive Data Percent cell count reference ranges are not reported, since discordance with absolute values may lead to misinterpretation of CBC data. Current Interpretive Data was last revised on 2018. Monocyte pct 15.0 % [facility] ([place]) Comment: Interpretive Data Percent cell count reference ranges are not reported, since discordance with absolute values may lead to misinterpretation of CBC data. Current Interpretive Data was last revised on 2018. Eosinophil pct 1.1 % [facility] ([place]) Comment: Interpretive Data Percent cell count reference ranges are not reported, since discordance with absolute values may lead to misinterpretation of CBC data. Current Interpretive Data was last revised on 2018. Basophil pct 0.7 % [facility] ([place]) Comment: Interpretive Data Percent cell count reference ranges are not reported, since discordance with absolute values may lead to misinterpretation of CBC data. Current Interpretive Data was last revised on 2018. Blood 04/12/2025 7:52 AM CDT 04/12/2025 8:40 AM CDT April Rodriguez NP LAB BLOOD ORDERABLES Final Re sult [facility] ([place] [address] [facility] Department [place] [address] * (ABNORMAL) CBC with auto differential (04/12/2025 7:52 AM CDT) WBC 5.46 3.80 - 9.90 K/cumm Hgb 14.4 13.0 - 17.5 g/dL [facility] ([place]) Hct 41.0 38.9 - 50.3 % [facility] ([place]) Plt 186 150 - 400 K/cumm [facility] ([place]) MPV 9.3 9.1 - 12.3 fL [facility] ([place]) RBC 4.32 4.30 - 5.80 M/cumm [facility] ([place]) MCV 94.9 81.3 - 96.4 fL [facility] ([place]) MCH 33.3 27.1 - 33.3 pg [facility] ([place]) MCHC 35.1 32.3 - 35.7 g/dL [facility] ([place]) RDW CV 14.6 11.1 - 14.9 % [facility] ([place]) RDW SD 51.5(H) 35.7 - 48.1 fL [facility] ([place]) NRBC abs 0.00 0.00 - 0.01 K/cumm [facility] ([place]) Blood 04/12/2025 7:52 AM CDT 04/12/2025 8:40 AM CDT April Rodriguez [employer] LAB BLOOD ORDERABLES Final Re sult [facility] ([place] [address] [facility] Department [place] [address] * Lipid panel (04/12/2025 7:52 AM CDT) Cholesterol 186 30 - 199 mg/dL Comment: Interpretive Data Ages < or = 19 years Acceptable: <170 mg/dL Borderline high: 170-199 mg/dL High: >or= 200 mg/dL Ages > or = 20 years Desirable: <200 mg/dL Borderline high: 200-239 mg/dL High: >or= 240 mg/dL Literature References: 1. Expert Panel on Integrated Guidelines for Cardiovascular Health and Risk Reduction in Children and Adolescents. Pediatrics 2011;128:S213 2. NCEP Expert Panel. Circulation 2004;110:227 Current Interpretive Data was last revised on 2018. Triglycerides 56 <=149 mg/dL [facility]) Comment: Interpretive Data Ages < or = 9 years Acceptable: <75 mg/dL Borderline high: 75-99 mg/dL High: >or= 100 mg/dL Ages 10 to 20 years Acceptable: <90 mg/dL Borderline high: 90-129 mg/dL High: >or= 130 mg/dL Ages > or = 20 years Desirable: <150 mg/dL Borderline high: 150-199 mg/dL High: 200-499 mg/dL Very high: >or= 499 mg/dL Literature References: 1. Expert Panel on Integrated Guidelines for Cardiovascular Health and Risk Reduction in Children and Adolescents. Pediatrics 2011;128:S213 2. NCEP Expert Panel. Circulation 2004;110:227 Current Interpretive Data was last revised on 2018. HDL 125 >=40 mg/dL [facility]) Comment: Interpretive Data Ages < or = 19 years Acceptable: >45 mg/dL Borderline low: 40-45 mg/dL Low: <40 mg/dL Ages > or = 20 years Desirable: >or= 60 mg/dL Low: <40 mg/dL Literature References: 1. Expert Panel on Integrated Guidelines for Cardiovascular Health and Risk Reduction in Children and Adolescents. Pediatrics 2011;128:S213 2. NCEP Expert Panel. Circulation 2004;110:227 Current Interpretive Data was last revised on 2018. LDL, calculated 50 <=129 mg/dL [facility] ([place]) Comment: Interpretive Data Ages < or = 19 years Acceptable: <110 mg/dL Borderline high: 110-129 mg/dL High: >or= 130 mg/dL Ages > or = 20 years Optimal: <100 mg/dL Near optimal: 100-129 mg/dL Borderline high: 130-159 mg/dL High: >160 mg/dL Calculated using the Kwan LDL-C estimating equation. This equation was implemented on 2024. Prior to this date LDL-C was estimated using the Friedewald equation. Literature References: 1. Expert Panel on Integrated Guidelines for Cardiovascular Health and Risk Reduction in Children and Adolescents. Pediatrics 2011;128:S213 2. NCEP Expert Panel. Circulation 2004;110:227 3. Kwan Longoria et al. CJ Cardiol. 2019March 31;5(5):540-548. doi: 10.1001/jamacardio.2020.0013 Current Interpretive Data was last revised on 2024. Non-HDL Cholesterol 61 mg/dL [facility] ([place]) Comment: Interpretive Data Ages < or = 19 years Acceptable: <120 mg/dL Borderline high: 120-144 mg/dL High: >145 mg/dL Ages > or = 20 years When triglycerides are >200 mg/dL, Non-HDL cholesterol is a secondary target of therapy with treatment goals that are 30 mg/dL greater than the LDL cholesterol target. Literature References: 1. Expert Panel on Integrated Guidelines for Cardiovascular Health and Risk Reduction in Children and Adolescents. Pediatrics 2011;128:S213 2. NCEP Expert Panel. Circulation 2004;110:227 Current Interpretive Data was last revised on 2018. Chol/HDL ratio 1 [facility] ([place]) Blood 04/12/2025 7:52 AM CDT 04/12/2025 8:40 AM CDT us April Rodriguez [employer] LAB BLOOD ORDERABLES Final Re sult [facility] ([place]) [address] [facility] Department [place] [address] * (ABNORMAL) Comprehensive metabolic panel (04/12/2025 7:52 AM CDT) Sodium 137 135 - 145 mmol/L Potassium, pl 3.8 3.3 - 4.9 mmol/L [facility]) Chloride 100 97 - 110 mmol/L [facility]) CO2 24 22 - 32 mmol/L [facility] ([place]) Anion gap 13 2 - 15 mmol/L [facility] ([place]) BUN 11 6 - 25 mg/dL [facility]) Creatinine 0.72(L) 0.80 - 1.30 mg/dL [facility] ([place]) Glucose 116 70 - 199 mg/dL [facility] ([place]) Comment: Interpretive Data Fasting glucose >/= 126 mg/dl is diagnostic for diabetes. Fasting is defined as no caloric intake for at least 8 hours. Fasting glucose between 100 mg/dl to 125 mg/dl is diagnostic of prediabetes. In a patient with classic symptoms of hyperglycemia or hyperglycemic crisis, a random glucose >/= 200 mg/dl is diagnostic for diabetes. In the absence of unequivocal hyperglycemia, results should be confirmed by repeat testing. The classification and Diagnosis of Diabetes Diabetes Care 2021; 46: S19-S40. Current interpretive data was last revised 2022. Calcium 9.4 8.5 - 10.3 mg/dL [facility] ([place]) Bilirubin, total 1.1 0.1 - 1.2 mg/dL [facility] ([place]) Protein, pl 7.2 6.5 - 8.5 g/dL [facility] ([place]) Albumin 4.6 3.5 - 5.0 g/dL [facility] ([place]) Alk phos 130 40 - 130 Units/L [facility] ([place]) ALT 14 7 - 55 Units/L [facility]) AST 34 10 - 50 Units/L [facility] ([place]) Blood 04/12/2025 7:52 AM CDT 04/12/2025 8:40 AM CDT us April Rodriguez NP LAB BLOOD ORDERABLES Final Re sult JULIAN BONILLA ([place]) [address] [facility] Department [place] [address] * CT Chest WO Contrast (03/19/2025 7:32 AM CDT) Anatomical Region Laterality Modality Body N/A Computed Tomogra phy 03/29/2025 8:26 AM CDT Narrative 03/29/2025 8:33 AM CDT EXAM DESCRIPTION: CT CHEST WO CONTRAST REASON FOR STUDY: Lung nodule, > 8mm F/u on lung nodule, cough, current smoker TECHNIQUE: CT scan of the chest performed without intravenous contrast using helical scanning technique. Reconstructed coronal and sagittal MPR images reviewed. All images stored on PACS. Automated exposure control was used as a dose optimization technique for this examination. COMPARISON: CT chest 03/15/2023 REFERENCE: Per ACR white paper recommendations, unless otherwise specified no follow-up imaging is recommended for incidental renal and adrenal lesions per consensus recommendations based on imaging criteria. Further lab evaluation could be pursued based on clinical findings. FINDINGS: The sensitivity for detection of solid visceral lesions is diminished without the use of intravenous contrast. HEART: Normal size without pericardial effusion. CORONARY ARTERY CALCIFICATION: None visualized. MEDIASTINUM/GIL: No abnormal lymph nodes by size criteria. No thoracic aortic aneurysm. LUNGS/PLEURA: 1.5 cm benign calcified granuloma in the right lower lobe. Stable small uncalcified pulmonary nodules, for example 4 mm right lower lobe nodule (axial image 56), 4 mm subpleural right lower lobe nodule (axial image 64) and 5 mm subpleural left upper lobe nodule (axial image 48). No new pulmonary nodules. No pleural effusion or pneumothorax. UPPER ABDOMEN: No acute findings. MUSCULOSKELETAL: No acute findings. OTHER: No other significant abnormality. IMPRESSION: Stable small pulmonary nodule measuring up to 5 mm. Per Fleischner Society Guidelines, no further follow-up should be necessary. Additional findings as above. THIS IS AN ELECTRONICALLY VERIFIED FINAL REPORT 03/29/2025 8:33 AM - Electronically signed by Juan R Antoine M.D., JR: Report ID: [id number] Reading Location: [id number] Procedure Note Juan R Antoine MD - 03/29/2025 EXAM DESCRIPTION: CT CHEST WO CONTRAST REASON FOR STUDY: Lung nodule, > 8mm F/u on lung nodule, cough, current smoker TECHNIQUE: CT scan of the chest performed without intravenous contrastusing helical scanning technique. Reconstructed coronal and sagittal MPR images reviewed. All images stored on PACS. Automated exposure control was usedas a dose optimization technique for this examination. COMPARISON: CT chest 03/15/2023 REFERENCE: Per ACR white paper recommendations, unless otherwise specifiedno follow-up imaging is recommended for incidental renal and adrenal lesionsper consensus recommendations based on imaging criteria. Further labevaluation could be pursued based on clinical findings. FINDINGS: The sensitivity for detection of solid visceral lesions is diminishedwithout the use of intravenous contrast. HEART: Normal size without pericardial effusion. CORONARY ARTERY CALCIFICATION: None visualized. MEDIASTINUM/GIL: No abnormal lymph nodes by size criteria. No thoracic aortic aneurysm. LUNGS/PLEURA: 1.5 cm benign calcified granuloma in the right lower lobe. Stable small uncalcified pulmonary nodules, for example 4 mm right lowerlobe nodule (axial image 56), 4 mm subpleural right lower lobe nodule (axialimage 64) and 5 mm subpleural left upper lobe nodule (axial image 48). No new pulmonary nodules. No pleural effusion or pneumothorax. UPPER ABDOMEN: No acute findings. MUSCULOSKELETAL: No acute findings. OTHER: No other significant abnormality. IMPRESSION: Stable small pulmonary nodule measuring up to 5 mm. Per [place] [facility] Guidelines, no further follow-up should be necessary. Additional findings as above. THIS IS AN ELECTRONICALLY VERIFIED FINAL REPORT 03/29/2025 8:33 AM - Electronically signed by Juan R Antoine M.D., JR: Report ID: [id number] Reading Location: [id number] Michael Hoffman MD IMG CT PROCEDURES Final R esult * Stress Treadmill Test (03/16/2025 11:31 AM CDT) Anatomical Region Laterality Modality Nuclear Medicine 03/16/2025 11:3 0 AM CDT Narrative 03/16/2025 12:52 PM CDT [address] [address] EXERCISE STRESS Patient Name: REBECCA GRIFFIN M : 1980 Study Date: 03/16/2025 11:30:00 AM Gender: M Tech: brenna Maldonado Provider: NICOLE DILL Height(Cm): 183 BSA: 2.98 Weight(Kg): 175 Order Provider: NICOLE DILL PROCEDURES: Stress Report: Treadmill stress Exam. INDICATIONS: R07.89 Other chest pain. FINDINGS: Procedure Data: Exercise Time: 08:00 Resting HR 94 bpm Peak HR: 152 bpm Predicted Maximal HR 174 bpm Target HR: 148 bpm Percent Max Predicted HR Achieved: 87 % Baseline BP: 142/95 Peak BP: 220/80 METS achieved: 10 Rate-Pressure Product: 99130 BPM*mmHg Max ST: Medications: Free Text. Performed By: Supervising Physician: The Supervising Physician is binu urbano. Resting ECG: Normal sinus rhythm, normal axis. Post ECG: No diagnostic ST changes. Arrhythmia: Occasional APCs. Exercise Capacity: Good exercise capacity. Cardiac Symptoms With Stress: Symptoms with stress were fatigue, general appearance and dyspnea. Target HR Achieved: Target heart rate was achieved. Reason For Termination: Fatigue. Dyspnea. THR achieved. Patient request. Hypertensive response. BP Response: Blood pressure response is hypertensive. Exam Interpreted: Read by . CONCLUSIONS: 1. Adequate stress test in regards to heart rate with the patient achieving 87% of predicted maximum heart rate. 2. No exercise induced chest pain. 3. No definite ischemia on stress EKG. Electronically Signed By: Dr Deng Wilson 03/16/2025 12:30:25 PM CDT Procedure Note Deng Wilson MD - 03/16/[address] [place] [address] EXERCISE STRESS Patient Name: REBECCA GRIFFIN M : 1980 Study Date: 03/16/2025 11:30:00 AM Gender: M Tech: brenna Maldonado Provider: NICOLE DILL Height(Cm): 183 BSA: 2.98 Weight(Kg): 175 Order Provider: NICOLE DILL PROCEDURES: Stress Report: Treadmill stress Exam. INDICATIONS: R07.89 Other chest pain. FINDINGS: Procedure Data: Exercise Time: 08:00 Resting HR 94 bpm Peak HR: 152 bpm Predicted Maximal HR 174 bpm Target HR: 148 bpm Percent Max Predicted HR Achieved: 87 % Baseline BP: 142/95 Peak BP: 220/80 METS achieved: 10 Rate-Pressure Product: 74741 BPM*mmHg Max ST: Medications: Free Text. Performed By: Supervising Physician: The Supervising Physician is binu urbano. Resting ECG: Normal sinus rhythm, normal axis. Post ECG: No diagnostic ST changes. Arrhythmia: Occasional APCs. Exercise Capacity: Good exercise capacity. Cardiac Symptoms With Stress: Symptoms with stress were fatigue, general appearance and dyspnea. Target HR Achieved: Target heart rate was achieved. Reason For Termination: Fatigue. Dyspnea. THR achieved. Patient request. Hypertensive response. BP Response: Blood pressure response is hypertensive. Exam Interpreted: Read by . CONCLUSIONS: 1. Adequate stress test in regards to heart rate with the patientachieving 87% of predicted maximum heart rate. 2. No exercise induced chest pain. 3. No definite ischemia on stress EKG. Electronically Signed By: Dr Deng Wilson 03/16/2025 12:30:25 PM CDT us Nicole Dill NP CV STRESS PROCEDURES Fi nal Result * COLONOSCOPY (01/31/2022 9:00 AM [employer]) Anatomical Region Laterality Modality Other Narrative Procedure Note Luis Mei MD - 01/31/2022 9:00 AM CST [facility] Patient Name: Rebecca Griffin Procedure Date: 01/31/2022 9:00 AM Date of : 1980 Admit Type: Outpatient Age: 42 Gender: Male Attending MD: Luis Mei M.D. Room: [facility] ENDOSCOPY ROOM 2 Note Status: Finalized Patient Profile: Refer to note in patient chart for documentation of history and physical. Procedure: Colonoscopy Indications: This is the patient's first colonoscopy,Hematochezia Referring MD: WILD Márquez Providers: Luis Mei M.D. Impression: - Preparation of the colon was poor. - Hemorrhoids found on perianal exam. - The entire examined colon is normal. - No specimens collected. Recommendation: - Discharge patient to home. - Resume previous diet. - Continue present medications. - Repeat colonoscopy in 10 years for screening purposes. - Return to primary care physician as previously scheduled. Medicines: Propofol per Anesthesia Complications: No immediate complications. Estimated Blood Loss: Estimated blood loss: none. Procedure: Pre-Anesthesia Assessment: - This assessment was completed [Time ofAssessment] prior to the administration of sedation. The benefits, risks and alternatives of theprocedure and sedation were discussed and informed consentwas obtained. All questions were answered. Please referto the signed informed consent document in the medical record. The bowel preparation used was Miralax and bisacodyl tablets via single dose instruction. The scope was passed under direct vision. TheColonoscope [id number] was introduced through the anus and advanced to the the cecum, identified by appendiceal orifice and ileocecal valve. The colonoscopy was performed without difficulty. The patient tolerated the procedure well. The qualityof the bowel preparation was poor. The ileocecalvalve, appendiceal orifice, and rectum werephotographed. Findings: Hemorrhoids were found on perianal exam. The colon (entire examined portion) appeared normal. Electronically signed by Luis Mei M.D. Luis Mei M.D. 01/31/2022 10:38:52 AM Number of Addenda: 0 Note Initiated On: 01/31/2022 9:00 AM Procedure Code(s): --- Professional --- 70651, Colonoscopy, flexible; diagnostic, including collection of specimen(s) by brushing or washing, when performed (separateprocedure) Diagnosis Code(s): --- Professional --- K92.1, Melena (includes Hematochezia) K64.9, Unspecified hemorrhoids CPT copyright 2020 [employer]. All rights reserved. The codes documented in this report are preliminary and upon attending psychiatrist reviewmay be revised to meet current compliance requirements. Recognized by the [place] [employer] for promoting quality in endoscopy Luis Mei MD ENDOSCOPY PROCEDURES Final Re sult from Last 3 Months or Most Recently Relevant to Health Maintenance Insurance [facility] IDPA [facility] H[facility] [facility] Advance Directives For more information, please contact: [phone] * Full Code (Latest Code Status on File) Date Activated Date Inactivated Comments 11/06/2024 9:45 PM 11/10/2024 4:54 PM * Full Code Date Activated Date Inactivated Comments 01/31/2022 9:17 AM 01/31/2022 3:32 PM * Full Code Date Activated Date Inactivated Comments 01/31/2022 9:17 AM 01/31/2022 9:17 AM * Full Code Date Activated Date Inactivated Comments 06/15/2020 10:06 AM 06/15/2020 4:58 PM Care Teams Absence Management Consultant Relationship Specialty Start Date End Date Michael Hoffman [place] [address] PCP - General Family Medicine 10/11/24
--- OUTSIDE RECORDS SUMMARY | 2025-04-21 14:33 | XMS_ITS | Clinical Summary ---
Author Organization [facility] B Address [address] [place] [address] Care Team Providers Care Drum Loader And Unloader Name Role Phone Michael Hoffman MD Primary Care Provider [phone] Allergies Active Allergy Reactions Criticality Noted Date [...] ideation. Assessment & Plan (11/19/2024 4:02 PM MANAGER CODING): Patient attempted to hang himself. Reviewed psychiatry [...] today as well as met with often social sciences professor. Patient denies any plans for self-harm or suicide when asked directly. Aware to seek help immediately or call 911 with any suicidal ideation. Alcohol withdrawal syndrome with complication Pulmonary nodules 10/11/2024 Assessment & Plan (10/11/2024 9:50 AM MANAGER CODING): Continues on f/u CT scan in 3 months. Monitor response. Hypertension, essential 10/11/2024 Assessment & Plan (04/12/2025 7:29 AM CDT): Blood pressure stable and controlled. Will continue on Lisinopril. Will continue to monitor. Assessment & Plan (11/19/2024 8:18 AM MANAGER CODING): BP well controlled, continue lisinopril 10 mg daily. Assessment & Plan (10/11/2024 9:50 AM MANAGER CODING): As above. Dupuytren's contracture of both hands 10/11/2024 Assessment & Plan (10/11/2024 9:50 AM MANAGER CODING): Referral to hand surgeon and will montior ersponse. NO chagne and will follow response. Alcoholic cirrhosis of liver without ascites 10/2024 Assessment & Plan (04/12/2025 7:33 AM CDT): Reviweed import of complete EtOH abstinence and will montior respnose. Reivewed risk fo HCC, orthopedics injuries secondasry to fall and contribution related to seizure and cardiac etiology Assessment & Plan (10/11/2024 9:51 AM MANAGER CODING): Reviweed import of complete EtOH abstinence and will montior respnose. Reivewed risk fo HCC, orthopedics injuries secondasry to fall and contribution related to seizure and cardiac etiology. ETOH abuse 10/11/2024 Assessment & Plan (11/19/2024 4:13 PM MANAGER CODING): Patient reports 2 weeks of sobriety, no etoh use since hospital discharge. Patient is agreeable to meet with social sciences professor today to discuss outpatient treatment options. Discussed importance of establishing coping mechanisms to prevent relapse. Continues topiramate Assessment & Plan (10/11/2024 9:51 AM MANAGER CODING): Precontemplative about cessation and will follow response. Mild intermittent asthma 10/11/2024 Assessment & Plan (10/11/2024 9:51 AM MANAGER CODING): Prn albuterol. Tobacco dependence 10/11/2024 Assessment & Plan (11/19/2024 8:19 AM MANAGER CODING): Precontemplative. Encourage cessation. Assessment & Plan (10/11/2024 9:51 AM MANAGER CODING): Precontemplative. Encourage cmoplete cessation. Encounter for medical examination to establish c are 10/11/2024 Assessment & Plan (10/11/2024 9:52 AM MANAGER CODING): Focus of exam is to establish care. Reivewed past medical history and will continue to [id number] response. NICM (nonischemic cardiomyopathy) 08/23/2022 Assessment & Plan (04/12/2025 7:29 AM CDT): Managed by cardiology, scheduled follow up 03/2025. Discussed relationship between alcoholism and heart disease. Stressed the need for continued sobriety. Assessment & Plan (11/19/2024 3:58 PM MANAGER CODING): Managed by cardiology, scheduled follow up 03/2025. Discussed relationship between alcoholism and heart disease. Stressed the need for continued sobriety. Essential hypertension 08/23/2022 Assessment & Plan (10/11/2024 9:49 AM MANAGER CODING): Setable on lisinopril and will montior response. NO chest pains/pressures/palptiations. Hemorrhage of anus and rectum 11/05/2021 Assessment & Plan (11/05/2021 1:34 PM MANAGER CODING): colonoscopy PAF (paroxysmal atrial fibrillation) 11/07/2020 Assessment & Plan (04/12/2025 7:29 AM CDT): NSR in office. No shortness a breath, palpitations or dizziness. Assessment & Plan (11/19/2024 3:57 PM MANAGER CODING): NSR in office. No shortness a breath, palpitations or dizziness. Hypersomnia 11/07/2020 Chest pain 06/07/2020 Overview (06/07/2020): Added automatically from request for surgery [id number] Therapeutic drug monitoring 09/26/2017 Variants of migraine [...] agent. Assessment & Plan (10/11/2024 9:49 AM MANAGER CODING): Continues on dual agent therapy. Continues on [...] Future Assessment & Plan (11/19/2024 4:28 PM MANAGER CODING): No recent seizure activity, last seizure 2019. Patient has continued lacosamide. Discussed side effects [...] tremors noted. Orders: Comprehensive metabolic panel; Future Encounters Date Type Department Care Team Description 04/12/2025 7:50 AM CDT Lab [address] [phone] Lipid disorder; Seizure disorder (HCC); Alcoholism (HCC) 04/12/2025 7:00 AM CDT [facility] Visit [facility] [address] [phone] April Rodriguez NP Seizure disorder (HCC) (Primary Dx); Nonintractable epilepsy without status epilepticus, unspecified epilepsy type (HCC); Alcoholism (HCC); Alcoholic cirrhosis of liver without ascites (HCC); Attempted suicide (HCC); PAF (paroxysmal atrial fibrillation) (HCC); Hypertension, essential; Chronic migraine with aura without status migrainosus, not intractable; NICM (nonischemic cardiomyopathy) (HCC); Lipid disorder; BMI 23.0-23.9, adult 04/12/2025 Results Follow-Up [facility] [address] [phone] April Rodriguez NP Lipid panel, Comprehensive metabolic panel, CBC with auto differential, Additional followed-up results: 2 03/29/2025 Results Follow-Up [facility] Primary Care at [address] [phone] Chest WO Contrast 03/19/2025 7:22 AM CDT - 03/19/2025 11:59 PM CDT Hospital Encounter [facility] [address] [place] [id number] Pulmonary nodules Discharge Disposition: Discharge to home or self care 03/18/2025 Telephone [facility] [address] [place] [phone] Fernando Delgado 03/16/2025 10:55 AM CDT - 03/16/2025 11:59 PM CDT Hospital Encounter [facility] [address] [place] [address] Other chest pain Discharge Disposition: Discharge to home or self care 03/16/2025 Results Follow-Up [place] [employer] at [facility] [address] [facility] [address] [place] [address] Nicole Jeffries NP Stress Treadmill Test 03/02/2025 8:30 AM CDT Office Visit [place] [employer] [facility] at [address] [place] [address] Nicole Jeffries NP NICM (nonischemic cardiomyopathy) (HCC) (Primary Dx); PAF (paroxysmal atrial fibrillation) (HCC); Essential hypertension; Other chest pain 02/06/2025 8:15 AM CDT Office Visit [facility] [address] [place] [phone] Monique Mera NP Exacerbation of asthma, unspecified asthma severity, unspecified whether persistent (Primary Dx) from Last 3 Months Immunizations Immunization Administration Dates Next Due DTP 07/13/1985,04/30/1984,01/19/1981 ,1979 Influenza, Unspecified 11/19/2024(Deferr ed: Patient Refused),10/11/2024(Deferred: Patient Refused),10/11/2024(Deferred: Patient Refused),08/31/2024(Deferred: Patient Refused),08/31/2023(Deferred: Patient Refused),08/31/2023(Deferred: Patient Refused),08/01/2023(Deferred: Patient Refused),08/01/2023(Deferred: Patient Refused),08/31/2022(Deferred: Patient Refused),08/31/2022(Deferred: Patient Refused) MMR 11/03/1990,05/18/1981 OPV 07/13/1985,04/30/1984,01/19/1981 ,1979 Td, adsorbed 09/16/1995 Tdap 11/09/2020 Surgical History Surgery Date Site/Laterality Comments CARDIAC CATHETERIZATION 12/01/2019 - 11/30/2020 COLONOSCOPY 01/31/2022 Medical History Medical History Date Comments Chronic coronary artery disease Coronary artery disease Asthma Asthma Hypertension Hypertension Alcoholism (HCC) Alcoholism Seizure disorder (HCC) Seizure d isorder Chest pain Syncope Atrial fibrillation (HCC) Atrial fibrillation (HCC) Vertigo Alcohol abuse 2013 Family History Medical History Relation Name Comments Alcohol abuse Father Rebecca Griffin COPD Father Rebecca Griffin Asthma Mother Kat Griffin Diabetes Mother Kat Griffin Hypertension Mother Kat Griffin Hypertension; Obesity Mother Kat Griffin Other Mother Kat Griffin Alive and wel l; Alcohol abuse Sister 1 Aisha Griffin Alcohol abuse Sister 2 Vibha Parker Cerebral palsy Son Bay Griffin Relation Name Status Comments Father Rebecca Griffin Alive Mother Kat Griffin Alive Sister 1 Aisha Griffin Sister 2 Vibha Parker Son [place] Griffin Social History Tobacco Use Types Packs/Day Years Used Date Smoking Tobacco: Every Day Cigarettes 0.4 38.8 Smokeless Tobacco: Former Chew Tobacco Cessation:Ready to Q uit: Not Asked; Counseling Given: Not Answered Alcohol Use Standard Drinks/Week Comments Yes 0 (1 standard drink = 0.6 oz pur e alcohol) socially [employer] Answer Date Recorded In the past 12 months has [employer], gas, oil, or water [employer] threatened to shut off services in your [...] 11/08/2024 How often do you attend chur or restorationism services? Patient declined 11/08/2024 Do you belong to any clubs o r organizations such as latter-day groups, unions, fraternal or athletic groups, or [...] any time in the past 12 [place], were you homeless or living in a nursing home (including now)? No 11/08/2024 Personal Safety Answer Date Recorded Have you ever been in or are you currently in a harmful physical or emotional relationship or is someone making you feel afraid or unsafe? Patient unable to answer 11/05/2024 Sex and Gender Information Value Date Recorded Sex Assigned at Not on file Legal Sex Male 4:07 AM MANAGER CODING Gender Identity Male 12/16/2021 4:19 PM MANAGER CODING Sexual Orientation Straight 12/16/2021 4: 19 PM MANAGER CODING Obstetrics History Last Filed Vital Signs Vital Sign Reading [...] 04/12/2025 7:01 AM CDT Plan of Treatment Health Maintenance Due Date Last Done Comments Hepatitis C Screening 1979 Hepatitis B Screening 1997 Regular Well Visit/Exam 18-64 1997 Influenza Vaccine (Season Ended) 2025 Pneumococcal vaccine <65 (1 of 2 - PCV) 11/04/2025 Postponed from 1998 (Patient declined, but will receive in the future) Depression Screening 04/12/2026 04/12/2025, 11/19/2024, 10/11/2024 DTaP/Tdap/Td Vaccine (6 - Td or Tdap) 11/09/2030 11/09/2020, 09/16/1995, 07/13/1985, Additional history exists Colon Cancer Screening-Colonoscopy 02/01/2032 01/31/2022 HPV Vaccines Aged Out No longer eligi ble based on patient's age to complete this topic Medical Devices Implanted Type Area Aircraft Engine Cylinder Mechanic Device Identifier Shelf Expiration Date Model / Serial / Lot [employer] [id number] Angio-Seal Evolution 6fr .035in Guidewire Bypass Tube Suture - [id number] Implanted:Qty: 1 on 06/15/2020 by Alonso Almanza MD at [facility] [employer] 12/31/2020 [id number] / / [id number] Procedures Procedure Name Priority Date/Time Associated Diagnosis [...] Other chest pain COLONOSCOPY 01/31/2022 9:00 AM MANAGER CODING from Last 3 Months or Most Recently [...] LAB BLOOD ORDERABLES Final Re sult [facility] ([place]) [address] [facility] Department [place] [address] 85 * (ABNORMAL) Differential, auto (04/12/2025 7:52 AM CDT) Neutrophil abs 2.68 1.50 - 6.50 K/cumm Imm gran abs 0.01 0.00 - 0.10 K/cumm [facility] ([place]) Lymphocyte abs 1.85 0.80 - 3.30 K/cumm [facility] ([place]) Monocyte abs 0.82(H) 0.20 - 0.80 K/cumm [facility] ([place]) Eosinophil abs 0.06 0.00 - 0.50 K/cumm [facility] ([place]) Basophil abs 0.04 0.00 - 0.10 K/cumm [facility] ([place]) Neutrophil pct 49.1 % [facility] ([place]) Comment: Interpretive Data Percent cell count reference ranges are not reported, since discordance with absolute values may lead to misinterpretation of CBC data. Current Interpretive Data was last revised on 2018. Imm gran pct 0.2 % [facility] ([place]) Comment: Interpretive Data Percent cell count reference ranges are not reported, since discordance with absolute values may lead to misinterpretation of CBC data. Current Interpretive Data was last revised on 2018. Lymphocyte pct 33.9 % [facility] ([place]) Comment: Interpretive Data Percent cell count reference ranges are not reported, since discordance with absolute values may lead to misinterpretation of CBC data. Current Interpretive Data was last revised on 2018. Monocyte pct 15.0 % [facility] ([place]) Comment: Interpretive Data Percent cell count reference ranges are not reported, since discordance with absolute values may lead to misinterpretation of CBC data. Current Interpretive Data was last revised on 2018. Eosinophil pct 1.1 % [facility] ([place]) Comment: Interpretive Data Percent cell count reference ranges are not reported, since discordance with absolute values may lead to misinterpretation of CBC data. Current Interpretive Data was last revised on 2018. Basophil pct 0.7 % [facility] ([place]) Comment: Interpretive Data Percent cell count reference ranges are not reported, since discordance with absolute values may lead to misinterpretation of CBC data. Current Interpretive Data was last revised on 2018. Blood 04/12/2025 7:52 AM CDT 04/12/2025 8:40 AM CDT April Rodriguez EARLY CHILDHOOD TEACHER ASSISTANT LAB BLOOD ORDERABLES Final Re sult [facility] ([place]) [address] [facility] [place] [address] * (ABNORMAL) CBC with auto differential (04/12/2025 [...] RDW SD 51.5(H) 35.7 - 48.1 fL [facility] NRBC abs 0.00 0.00 - 0.01 K/cumm [facility] ([place]) Blood 04/12/2025 7:52 AM CDT 04/12/2025 8:40 AM CDT April Rodriguez NP LAB BLOOD ORDERABLES Final Re sult [facility] ([place]) [address] [facility] [place] [address] * Lipid panel (04/12/2025 7:52 AM CDT) [...] on 2018. HDL 125 >=40 mg/dL [facility] ([place]) Comment: Interpretive Data Ages < or [...] NCEP Expert Panel. Circulation 2004;110:227 3. Kwan M et al. CJ Cardiol. 2020 March 31;5(5):540-548. doi: 10.1001/jamacardio.2020.0013 Current Interpretive Data was [...] Final Re sult [facility] ([place]) [address] [facility] Department [place] [address] * (ABNORMAL) Comprehensive metabolic panel (04/12/2025 7:52 [...] 04/12/2025 8:40 AM CDT us April Rodriguez EARLY CHILDHOOD TEACHER ASSISTANT LAB BLOOD ORDERABLES Final Re sult [facility] ([place]) [address] [facility] Department [place] [address] * CT Chest WO Contrast (03/19/2025 7:32 [...] - Electronically signed by Juan R Antoine M.D. JR: Report ID: [id number] Reading Location: [place] [address] Procedure Note Juan R Antoine MD - [...] nodule measuring up to 5 mm. Per [facility], no further follow-up should be necessary. Additional findings as above. THIS IS AN ELECTRONICALLY VERIFIED FINAL REPORT 03/29/2025 8:33 AM - Electronically signed by Juan R Antoine M.D. JR: Report ID: [id number] Reading Location: [place] [address] us Michael Hoffman MD IMG CT PROCEDURES Final R esult * Stress Treadmill Test (03/16/2025 11:31 AM CDT) Anatomical Region Laterality Modality Nuclear Medicine 03/16/2025 11:3 0 AM CDT Narrative 03/16/2025 12:52 PM CDT [address] [place] [address] EXERCISE STRESS Patient Name: REBECCA RGIFFIN M : 1980 Study Date: 03/16/2025 11:30:00 AM Gender: M Tech: brenna harris Ref Provider: NICOLE JEFFRIES Height(Cm): 183 BSA: 2.98 Weight(Kg): 175 Order Provider: NICOLE JEFFRIES PROCEDURES: Stress Report: Treadmill stress Exam. INDICATIONS: R07.89 Other chest pain. FINDINGS: Procedure Data: Exercise Time: 08:00 Resting HR 94 bpm Peak HR: 152 bpm Predicted Maximal HR 174 bpm Target HR: 148 bpm Percent Max Predicted HR Achieved: 87 % Baseline BP: 142/95 Peak BP: 220/80 METS achieved: 10 Rate-Pressure Product: 17556 BPM*mmHg Max ST: Medications: Free Text. Performed [...] Procedure Note Deng Wilson MD - 03/16/[address] [place] [address] EXERCISE STRESS Patient Name: REBECCA GRIFFIN M : 1980 Study Date: 03/16/2025 11:30:00 AM Gender: M Tech: brenna harris Ref Provider: NICOLE JEFFRIES Height(Cm): 183 BSA: 2.98 Weight(Kg): 175 Order Provider: NICOLE JEFFRIES PROCEDURES: Stress Report: Treadmill stress Exam. INDICATIONS: R07.89 Other chest pain. FINDINGS: Procedure Data: Exercise Time: 08:00 Resting HR 94 bpm Peak HR: 152 bpm Predicted Maximal HR 174 bpm Target HR: 148 bpm Percent Max Predicted HR Achieved: 87 % Baseline BP: 142/95 Peak BP: 220/80 METS achieved: 10 Rate-Pressure Product: 92135 BPM*mmHg Max ST: Medications: Free Text. Performed [...] Dr Deng Wilson 03/16/2025 12:30:25 PM CDT Nicole Jeffries NP CV STRESS PROCEDURES Fi nal Result * COLONOSCOPY (01/31/2022 9:00 AM MANAGER CODING) Anatomical Region Laterality Modality Other Narrative Procedure Note Luis Mei MD - 01/31/2022 9:00 AM CST [facility] Patient Name: Rebecca Griffin Procedure Date: 01/31/2022 9:00 AM Date of : 1980 Admit Type: Outpatient Age: 42 Gender: Male Attending MD: Luis Mei M.D. Room: [facility] ENDOSCOPY ROOM 2 Note Status: Finalized Patient [...] scope was passed under direct vision. TheColonoscope [id number] was introduced through the anus and advanced [...] 9:00 AM Procedure Code(s): --- Professional --- 43559, Colonoscopy, flexible; diagnostic, including collection of specimen(s) by brushing or washing, when performed (separateprocedure) Diagnosis Code(s): --- Professional --- K92.1, Melena (includes Hematochezia) K64.9, Unspecified hemorrhoids CPT copyright 2020 [employer]. All rights reserved. The codes documented in this report are preliminary and upon mold yard crane operator reviewmay be revised to meet current compliance requirements. Recognized by the [place] [employer] for promoting quality in endoscopy Luis Mei MD ENDOSCOPY PROCEDURES Final Re sult from Last 3 Months or Most Recently Relevant to Health Maintenance Insurance [facility] Advance Directives For more information, please contact: [phone] * Full Code (Latest Code Status on File) Date Activated Date Inactivated Comments 11/06/2024 9:45 PM 11/10/2024 4:54 PM * Full Code Date Activated Date Inactivated Comments 01/31/2022 9:17 AM 01/31/2022 3:32 PM * Full Code Date Activated Date Inactivated Comments 01/31/2022 9:17 AM 01/31/2022 9:17 AM * Full Code Date Activated Date Inactivated Comments 06/15/2020 10:06 AM 06/15/2020 4:58 PM Care Teams Drum Loader And Unloader Relationship Specialty Start Date End Date Mcihael Hoffman MD [address] [place] [address] PCP - General Family Medicine 10/11/24
--- OUTSIDE RECORDS SUMMARY | 2025-04-21 14:33 | XMS_ITS | Clinical Summary ---
Author Organization [facility] Address [address] [facility] [place] [address] Phone Care Team Providers Care Tablet Making Machine Operator Helper Name Role Phone Reza Snow Primary Care Provider [phone] Chaparro Zimmerman DPM Unavailable [phone] Allergies Active Allergy Reactions Criticality Noted Date Comments Sulfa Antibiotics Unknown 08/28/2017 Medications VIMPAT 200 MG Tablet Take 1 Tab by mouth 2 times daily. 3 08/22/2017 Active Topiramate ER 50 MG Capsule ER 24 Hour Sprinkle Take 1 Cap by mouth daily. 5 08/22/2017 Active lisinopril (PRINIVIL, ZESTRIL) 20 MG Tablet Take 1 Tab by mouth daily. 3 08/22/2017 Active Active Problems Problem Noted Date Diagnosed Date Plantar fascial fibromatosis of right foot 09/18 Pain of right foot 09/18/2017 Family History Medical History Relation Name Comments Hypertension Father Depression Mother Diabetes Mother Hypertension Mother Other-comment Mother Relation Name Status Comments Father Alive Mother Alive Social History Tobacco Use Types Packs/Day Years Used Date Smoking Tobacco: Every Day Cigarettes 1.5 23 Smokeless Tobacco: Never Tobacco Cessation:Ready to Q uit: Not Asked; Counseling Given: Not Answered Alcohol Use Standard Drinks/Week Comments Yes 12 (1 standard drink = 0.6 oz pu re alcohol) Sexually Active Control Partners Comments Yes Female Sex and Gender Information Value Date Recorded Sex Assigned at Not on file Legal Sex Male 10:25 PM CDT Gender Identity Not on file Sexual Orientation Not on file Last Filed Vital Signs Vital Sign Reading Time Taken Comments Blood Pressure 150/103 07/19/2023 5:30 PM CDT Pulse 83 07/19/2023 5:30 PM CDT Temperature 36.4 C (97.6 F) 07/19/2023 3:19 PM CDT Respiratory Rate 17 07/19/2023 3:19 PM CDT Oxygen Saturation 95% 07/19/2023 5:30 PM CDT Inhaled Oxygen Concentration - - Weight 73.4 kg (161 lb 13.1 oz) 07/19/2023 3:19 PM CDT Height 185.4 cm (6' 1 ) 07/19/2023 3:19 PM CDT Body Mass Index 21.35 07/19/2023 3:19 PM CDT Plan of Treatment Health Maintenance Due Date Last Done Comments Hepatitis C Virus (HCV) Screening 1980 Hepatitis B Immunization (1 of 3 - 19+ 3-dose series) 1998 Pneumococcal Immunization Combined (1 of 2 - PCV) 1998 Colonoscopy 2024 Colorectal Cancer Screening 2024 Influenza Immunization (#1) 2024 SARS-COV-2 Immunization ( - 2023- season) 2024 Respiratory Syncytial Virus (RSV) Immunization (Adult) (1 - 1-dose 75+ series) 2054 DTaP/Tdap/Td Immunization Discontinued 2019, 09/16/1995, 07/13/1985, Additional history exists TdaP Immunization Completed 11/09/2020 Meningococcal Immunization (ACWY) Aged Out No longer eligible based on patient's age to complete this topic Rotavirus Immunization Aged Out No lo nger eligible based on patient's age to complete this topic Insurance [employer] Care Teams Tablet Making Machine Operator Helper Relationship Specialty Start Date End Date Reza Snow PAC [address] [place] [address] PCP - General Physician Rounding Machine Tender 07/24/17 Chaparro Zimmerman DPM [address] [place] [address] Consulting Physician Podiatry 08/28/17
--- OUTSIDE RECORDS SUMMARY | 2025-04-21 14:33 | XMS_ITS | Encounter Summary ---
Author Organization [facility] Healthcare Address [address] [place] [address] Care Team Providers Care Boiler Tender Name Role Phone Michael Hoffman MD Primary Care Provider [phone] Encounter Details Date Type Department Care Team (Late st Contact Info) Description 03/29/2025 Results Follow-Up [facility] Primary Care at [address] [address] Michael Hoffman MD [address] [place] [address] CT Chest WO Contrast Social History Tobacco Use Types Packs/Day Years Used Date Smoking Tobacco: Every Day Cigarettes 0.4 38.8 Smokeless Tobacco: Former Chew Alcohol Use Standard Drinks/Week Comments Yes 0 (1 standard drink = 0.6 oz pur e alcohol) socially [facility] Utilities Answer Date Recorded In the past 12 months has [employer], gas, oil, or water [employer] threatened to shut off services in your [...] week 11/08/2024 How often do you attend [facility] or yarsanism services? Patient declined 11/08/2024 Do you belong to any clubs o r organizations such as evangelical groups, unions, fraternal or athletic groups, or [...] points, staff should administer the PHQ-9) 1 11/19/2024 Hunger Vital Sign Answer Date Recorded Within [...] any time in the past 12 m [facility], were you homeless or living in a intermediate (including now)? No 11/08/2024 Personal Safety Answer Date Recorded Have you ever been in or are you currently in a harmful physical or emotional relationship or is someone making you feel afraid or unsafe? Patient unable to answer 11/05/2024 Sex and Gender Information Value Date Recorded Sex Assigned at Not on file Legal Sex Male 4:07 AM BONE DENSITY TECHNICIAN Gender Identity Male 12/16/2021 4:19 PM BONE DENSITY TECHNICIAN Sexual Orientation Straight 12/16/2021 4: 19 PM BONE DENSITY TECHNICIAN documented as of this encounter Plan of Treatment Not on file documented as of this encounter Visit Diagnoses Not on filedocumented in this encounter Care Teams Boiler Tender Relationship Specialty Start Date End Date Michael Hoffman MD [address] [place] [address] PCP - General Family Medicine 10/11/24 documented as of this encounter
--- OUTSIDE RECORDS SUMMARY | 2025-04-21 14:33 | XMS_ITS | Encounter Summary ---
Author Organization [facility] Healthcare Address [address] [place] [address] Care Team Providers Care Last Code Striper Name Role Phone Michael Hoffman MD Primary Care Provider [phone] Encounter Details Date Type Department Care Team (Late st Contact Info) Description 03/16/2025 Results Follow-Up [facility] at [address] [place] [address] Nicole Dill NP [address] [place] [address] [address] [place] [address] Stress Treadmill Test Social History Tobacco Use Types Packs/Day Years Used Date Smoking Tobacco: Every Day Cigarettes 0.4 38.8 Smokeless Tobacco: Former Chew Alcohol Use Standard Drinks/Week Comments Yes 0 (1 standard drink = 0.6 oz pur e alcohol) socially [facility] Utilities Answer Date Recorded In the past 12 months has [employer], gas, oil, or water [employer] threatened to shut off services in your [...] week 11/08/2024 How often do you attend [facility] or hinduism services? Patient declined 11/08/2024 Do you belong to any clubs o r organizations such as christianity groups, unions, fraternal or athletic groups, or [...] any time in the past 12 m [facility], were you homeless or living in a halfway (including now)? No 11/08/2024 Personal Safety Answer Date Recorded Have you ever been in or are you currently in a harmful physical or emotional relationship or is someone making you feel afraid or unsafe? 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
--- OUTSIDE RECORDS SUMMARY | 2025-04-21 14:33 | XMS_ITS | Encounter Summary ---
Author Organization [facility] Healthcare Address [address] [place] [address] Care Team Providers Care Flight Test Supervisor Name Role Phone Michael Hoffman MD Primary Care Provider [phone] Encounter Details Date Type Department Care Team (Late st Contact Info) Description 04/12/2025 Results Follow-Up [facility] [address] [place] [address] April Rodriguez NP [address] [place] [address] Lipid panel, Comprehensive metabolic panel, CBC with auto differential, Additional followed-up results: 2 Social History Tobacco Use Types Packs/Day Years Used Date Smoking Tobacco: Every Day Cigarettes 0.4 38.8 Smokeless Tobacco: Former Chew Alcohol Use Standard Drinks/Week Comments Yes 0 (1 standard drink = 0.6 oz pur e alcohol) socially [facility] Utilities Answer Date Recorded In the past 12 months has [employer], gas, oil, or water company threatened to shut off services in your [...] often do you attend chur ch or gnosticism services? Patient declined 11/08/2024 Do you belong to any clubs o r organizations such as confucianist groups, unions, fraternal or athletic groups, or [...] any time in the past 12 m [facility], were you homeless or living in a usp (including now)? No 11/08/2024 Personal Safety Answer Date Recorded Have you ever been in or are you currently in a harmful physical or emotional relationship or is someone making you feel afraid or unsafe? 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
[2025-04-21 14:43] VITALS: BP 127/84; PULSE 81; RESP 18; TEMP 36.5; O2SAT 98
--- NOTE | 2025-04-21 14:58 | ED.FALL ---
HPI - Fall General Chief Complaint: Fall Stated Complaint: fall at work Time Seen by Provider: 04/21/25 14:59 Source: patient, RN notes reviewed and old records reviewed Mode of arrival: ambulatory Limitations: no limitations History of Present Illness HPI Narrative: 45 year old male accompanied by with complaints of cleaning up debris today and fell over log and put his right hand arm out to break his fall at noon today. Patient repots that he has pain to his right wrist and to his forearm. Patient is able to pronate and supinate his right arm with pain mainly to right wrist area. Patient does have strong pulses to his right arm with sensation intact. Patient has no acute swelling or any ecchymosis noted. MD complaint: fall Onset (ago): hour(s) (noon today) Fall from: standing Place fall occurred: other (outside) Loss of consciousness: none Symptoms prior to fall: none Location of injury: other (right wrist and forearm) Related Data Home Medications ?Medication ?Instructions ?Recorded ?Confirmed ?Last Taken ?Type lacosamide 200 mg tablet (Vimpat) 200 mg PO Q12H 10/18/20 04/21/25 Unknown History lisinopril 20 mg tablet 20 mg PO DAILY 10/18/20 08/12/24 Unknown History topiramate 50 mg tablet 50 mg PO DAILY 10/18/20 04/21/25 Unknown History Allergies Allergy/AdvReac Type Severity Reaction Status Date / Time Sulfa (Sulfonamide Allergy Unknown Rash Verified 04/21/25 14:49 Antibiotics) Review of Systems Review of Systems: CONSTITUTIONAL: Denies fever, chills, or sweats. EYES: Denies visual changes, redness, or discharge. ENT: Denies rhinorrhea, congestion, sore throat, or otalgia. CARDIOVASCULAR: Denies chest pain, palpitations, or edema. RESPIRATORY: Denies cough or dyspnea. GASTROINTESTINAL: Denies abdominal pain, nausea, vomiting, or diarrhea. GENITOURINARY: Denies dysuria or hematuria. SKIN: Denies rash or itching. MUSCULOSKELETAL: Denies back pain, positive for pain to his right wrist and right forearm from fall or myalgia. NEUROLOGIC: Denies headache, numbness, or weakness. PSYCHIATRIC: Denies anxiety or depression. All systems reviewed & are unremarkable except as noted in HPI and below [facility] Past Medical History Medical History Fracture of right hand Paroxysmal A-fib Dizziness Asthma Hypertension Seizures Surgical History Surgical History History of arthroscopy of right shoulder S/P left knee arthroscopy torn meniscectomy Social History Social History Smoking status: Current every day smoker Alcohol use details: Alcohol abuse in past unknown if still consuming alcohol Substance use: unknown Living arrangements: with family Gender identity (if verbalized by the patient): Male Comments At time of signature, agree with nursing past medical, surgical, social and family history. There is no relevant family history pertinent to the presenting complaint Exam Narrative: GENERAL: Well-appearing, well-nourished, and in no acute distress. HEAD: Normocephalic, atraumatic. EYES: PERRLA and EOMI. ENT: Nares clear, no rhinorrhea or epistaxis. Mucous membranes moist. NECK: Supple.no lymphadenopathy CHEST: Clear to auscultation. No respiratory distress. SAO2 98% on room air HEART: Regular rate and rhythm. No murmur heard. Normal peripheral pulses. ABDOMEN: Soft, nontender, nondistended, normal active bowel sounds. EXTREMITIES: Normal range of motion. No edema. verbalizes pain to right forearm and right wrist from fall. patient is able to pronate and supinate right forearm, patient reports increased pain with movement of wrist, circulation and sensation is intact with stron pulses right arm and wrist. SKIN: Warm, dry, no rash. NEURO: No focal deficits. Alert and oriented x3. Course Course Emergency Course: Patient is aware of diagnosis, understands and agrees to treatment plan.? Anticipatory guidance given.? Patient agrees to follow-up as directed and is aware of reasons to seek care at the emergency department. Portions of this record may have been created with voice recognition software Level of Care: Express Care Visit Vital Signs Vital signs: Vital Signs Temperature 36.5 C 04/21/25 14:43 Pulse Rate 81 04/21/25 14:43 Respiratory Rate 18 04/21/25 14:43 Blood Pressure 127/84 04/21/25 14:43 Pulse Oximetry 98 04/21/25 14:43 Oxygen Delivery Room Air 05/22/25 14:43 Temperature 36.5 C 04/21/25 14:43 Pulse Rate 81 04/21/25 14:43 Respiratory Rate 18 04/21/25 14:43 Blood Pressure 127/84 04/21/25 14:43 Pulse Oximetry 98 04/21/25 14:43 Oxygen Delivery Room Air 04/21/25 14:43 Reviewed MDM - Fall Differential Diagnosis Differential diagnosis: Likely fracture of wrist and other (fracture forearm, contusion of forearm and right wrist, pain right wrist,) Medical Records Attestation: I reviewed the patient's medical records. Imaging Data Attestation: I personally reviewed and interpreted this imaging study as follows: My impression: old healed fracture to right hand at 2nd and 3rd metacarpal diaphysis no acute fracture identified, no elbow joint effusion Radiologist's impression: [facility] [place] [address] XRay Report Signed Patient: Reza Griffin : 1980 MR#: [id number] Age: 45 Acct:[id number] Loc: [facility] ADM Date: 04/21/25Attending Dr: Ordering Physician: Christina Del Angel APRN Date of Service: 04/21/25 Procedure(s): XR elbow RT min 3V; XR wrist RT min 3V Accession Number(s): [id number]; [id number] cc: Dalton, Michael Hendrickson MD; Christina Del Angel APRN~ EXAMINATION: XR elbow RT min 3V, XR wrist RT min 3V DATE: 04/21/2025 15:21 INDICATION: Right wrist and forearm pain post fall TECHNIQUE: 1. Anteroposterior, two oblique and lateral views of the right elbow were obtained. 2. Dorsal palmar, lateral, ulnar deviation and oblique views of the right wrist were obtained. COMPARISON: None. FINDINGS: Alignment is normal at the right elbow, wrist and visualized hand. Old healed fracture deformity at the right second and third metacarpal diaphysis. No acute fractures identified. Normal joint space at the right elbow, wrist and visualized hand. No elbow joint effusion. Soft tissues are unremarkable. IMPRESSION: 1. Old healed fractures of the right second and third metacarpal diaphyses. Otherwise normal radiographs of the right wrist and elbow. Reviewed, dictated and finalized at location A. Please be advised this is a medical document. It is intended for [id number] communication. It is written in medical language and may contain unfamiliar abbreviations or verbiage. Medical documents are intended to carry relevant information, facts as evident, and the clinical opinion of the practitioner at the time of the encounter. This report may have been done utilizing a voice recognition system. Attempts have been made to correct errors. However, there may be uncorrected grammatical, spelling, and recognition errors present. The file time of this note does not necessarily represent the time of service. Dictated By: Anson Caal MD 04/21/25 1523 Signed By: <Electronically signed by Anson Caal MD in OV> Critical Care Time Critical Care Time Critical Care Time: No Discharge Plan Discharge Clinical Impression: Pain in right wrist, Pain of right forearm Patient Disposition: Home Condition: Stable Instructions: Wrist Injury (ED) Additional Instructions: Elastic wrap or orthopedic splint as directed for comfort for the next 5-7 days Tylenol for lesser pain Ibuprofen regularly for the next 2-3 days for the inflammation Follow-up with orthopedic surgeon if any further complaints Follow-up with PCP if further problems or concerns Ice to the area 20-30 minutes 4-6 times a day Elevate above heart X-rays negative for fractures If your symptoms persist, change or worsen significantly before you can contact your personal physician then please, without delay, go to the emergency department for further evaluation. Follow-up with PCP in 7-10 days or sooner if needed Follow up with PCP soon in regards to your blood pressure which is elevated above threshold for referral. Blood pressure above 120/80 may indicate pre-hypertension. 127/84 Patient Language: Upper Sorbian Prescriptions: No Action lisinopril 20 mg Tablet 20 mg PO DAILY topiramate 50 mg Tablet 50 mg PO DAILY lacosamide [Vimpat] 200 mg Tablet 200 mg PO Q12H Follow-up/Referrals: Harms,Michael Hendrickson M.D. [Primary Care Provider] - Time of Disposition: 15:34 Quality Wallace Coma Scale Eyes: Open Verbal: Oriented and Alert Motor: Follows Commands Kylee Coma Total Score: 15
== END 2025-04-21 15:39 | disposition home or self-care (01) ==
PROVIDERS: Emergency Provider Registered Nurse; PCP Family Medicine
DX: M25.531 Pain in right wrist (principal); M79.631 Pain in right forearm; F17.200 Nicotine dependence, unspecified, uncomplicated; I48.0 Paroxysmal atrial fibrillation; I10 Essential (primary) hypertension; G40.909 Epilepsy, unspecified, not intractable, without status epilepticus; J45.909 Unspecified asthma, uncomplicated
CPT/HCPCS: 73080; 73110; 99214; G0463